=== PATIENT | male | born 1940 | race Caucasian/White ===

== ENCOUNTER 2018-03-30 18:04 | Observation (INO) ==
--- NOTE | 2018-03-30 18:20 | ED ---
HPI General Chief Complaint: Altered Mental Status Stated Complaint: Stroke Alert Time Seen by Provider: 03/30/18 18:12 Source: patient and EMS Mode of arrival: EMS Limitations: no limitations History of Present Illness HPI narrative: 77-year-old male was brought via EMS for altered mental status. 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 Patient was seen at home by his son this afternoon. The son reported to EMS that patient started having decreasing mental status and become unresponsive completely at home. EMS was called. Patient was observed by EMS unresponsive with GCS of 3 at home. Sternal rub did not elicit any respond from the patient. Accu-Chek blood sugar was on the high range. Patient was given oxygen via nonrebreathing mask and transported to ED for evaluation. Patient started regaining consciousness on the way to the ED. Patient awake alert . Patient denies any headache. Patient denies any visual change. Patient denies any neck pain. Patient denies any chest pain or shortness of breath. Patient denies abdominal pain. Patient denies any focal weakness or numbness of the extremity. Patient's son came and provided more information. Patient started having complaint of constipation and went to the bathroom this afternoon. Patient states that he is feeling nauseous tired and feeling sick to the stomach. Patient started becoming aphasic and having jerking motion of the extremity and then passed out completely. EMS was called. Patient has multiple episodes similar to this episode and was seen and admitted to the hospital in [place] in the past. 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 complaint: altered mental status Onset (ago): minute(s) Timing confirmed by: family member Severity: severe Consistency of symptoms: constant Associated symptoms: denies other symptoms Treatments prior to arrival: IV fluid and oxygen Related Data Home Medications Medication Instructions Recorded Confirmed Multi Vitamin 1 tab PO DAILY 03/31/18 03/31/18 amlodipine 5 mg PO DAILY 03/31/18 03/31/18 aspirin 325 mg PO DAILY 03/31/18 03/31/18 atorvastatin 10 mg PO DAILY 03/31/18 03/31/18 clonidine HCl 0.1 mg PO DAILY 03/31/18 03/31/18 docusate sodium 100 mg PO DAILY 03/31/18 03/31/18 ergocalciferol (vitamin D2) 50,000 unit PO QWEEK 03/31/18 03/31/18 insulin detemir U-100 [Levemir 30 unit SUB-Q QPM 03/31/18 03/31/18 FlexTouch U-100 Insuln] tamsulosin 0.8 mg PO DAILY 03/31/18 03/31/18 thiamine HCl (vitamin B1) 100 mg PO DAILY 03/31/18 03/31/18 valsartan 320 mg PO DAILY 03/31/18 03/31/18 Allergies Allergy/AdvReac Type Severity Reaction Status Date / Time No Known Allergies Allergy Mild Uncoded 08/22/08 09:58 Review of Systems Except as stated in HPI: all other systems reviewed are negative PMFSH History History Provided By: Patient and Export Sales Manager / EMT Medical History Medical History CVA (cerebral vascular accident) (Acute) Social History Social History Substance History: Past History Second Hand Smoke Exposure: No Smoking Status: Never smoker How Often Do You Have a Drink Containing Alcohol: Never Recent Travel in [facility] within the Last 8 Weeks: No Recent Out of Country Travel within the Last 8 Weeks: No Exam Narrative Exam Narrative: GENERAL: Well-nourished, well-developed patient. SKIN: Focused skin assessment warm/dry. HEAD: Normocephalic. EYES: No scleral icterus. No injection or drainage. Pupils 1.5 mm equal reactive. NECK: Supple, trachea midline. No JVD or lymphadenopathy. CARDIOVASCULAR: Regular rate and rhythm without murmurs, gallops, or rubs. RESPIRATORY: Breath sounds equal bilaterally. No accessory muscle use. GASTROINTESTINAL: Abdomen soft, non-tender, nondistended. MUSCULOSKELETAL: No cyanosis, or edema. BACK: Nontender without obvious deformity. No CVA tenderness. Neurologic exam: Patient is awake and alert oriented 3. Patient can move all extremities well. No obvious focal neurological deficit. Course Initial Documented Vital Signs Temperature 97.6 F 03/30/18 18:07 Pulse Rate 100 H 03/30/18 18:07 Respiratory Rate 17 03/30/18 18:07 Blood Pressure 180/85 H 03/30/18 18:07 Pulse Oximetry 99 03/30/18 18:07 Last Documented Vital Signs Temperature 97.5 F L 03/31/18 08:54 Pulse Rate 79 03/31/18 08:54 Respiratory Rate 20 03/31/18 08:54 Blood Pressure 172/80 H 03/31/18 09:25 Pulse Oximetry 98 03/31/18 08:55 Sign Out Sign Out Data: Patient Sign Out occurred on 03/30/18 at 20:05. Patient's care was discussed, and care was transferred from Adam Mosquera to Mona Campos MD. Sign Out Comment: Check blood tests and CT scan. Patient probably need to be admitted for workup for altered mental status and possible seizure. Last updated by Adam Mosquera MD at 03/30/18 19:20 Post-Handoff Eval: Received sign out from Dr. Mosquera for check workup results and admit. Patient resting comfortably in stretcher with family at bedside. [id number], head CT- CONCLUSION:1. No acute findings. Cortical volume loss with mild ventricular prominence and likely chronic white matter ischemic changes. CXR- CONCLUSION: No acute findings. Elevated right hemidiaphragm. Mild basilar atelectasis. chem-TSH and glucose increased ua-+ bacteria, cx pending bd cx-pending ECG: SR, PVCs, LVH, incomplete RBBB Patient given cipro 400mg IV 10:25 admission called NIH Stroke Scale NIH Stroke Scale Level of Consciousness: 0-Alert Orientation Questions: 0-Answers both correct Responds to Commands: 0-Both tasks correct Gaze Eye Movement: 0-Horizontal movement WNL Visual Boyd: 0-No visual field defect Facial Movement: 0-Normal Motor Functions Arm LEFT: 0-No drift Motor Functions Arm RIGHT: 0-No drift Motor Functions Leg LEFT: 0-No drift Motor Functions Leg RIGHT: 0-No drift Limb Ataxia: 0-No ataxia Sensory Loss: 0-No sensory loss Best Language: 0-Normal Articulation: 0-Normal Extinction or Inattention Sensory: 0-Absent Total: 0 Medical Decision Making MDM Narrative Medical decision making narrative: 77-year-old male with transient loss of consciousness. Patient is back to baseline now. Normal saline solution 100 cc an hour. O2 2 L nasal cannula. Head of bed flat. Differential Diagnosis Differential Diagnosis: Differential diagnosis including TIA, CVA, vasovagal reaction, electrolyte imbalance, dehydration, arrhythmia, seizure. Lab Data Result diagrams: 03/30/18 18:15 07/07/18 18:15 Lab Results 03/30/18 03/30/18 03/30/18 Range/Units 18:15 18:15 18:15 WBC 4.7 (4.0-11.0) th/mm3 RBC 4.22 L (4.50-5.90) mil/mm3 Hgb 13.5 (13.0-17.0) gm/dL Hct 39.7 (39.0-51.0) % MCV 94.1 (80.0-100.0) fL MCH 32.0 (27.0-34.0) pg MCHC 34.0 (32.0-36.0) % RDW 14.6 (11.6-17.2) % Plt Count 231 (150-450) th/mm3 MPV 8.7 (7.0-11.0) fL Neut % (Auto) 38.7 (16.0-70.0) % Lymph % (Auto) 42.3 (9.0-44.0) % [place] % (Auto) 10.3 H (0.0-8.0) % Eos % (Auto) 7.7 H (0.0-4.0) % Baso % (Auto) 1.0 (0.0-2.0) % Neut # (Auto) 1.8 (1.8-7.7) th/mm3 Lymph # (Auto) 2.0 (1.0-4.8) th/mm3 [place] # (Auto) 0.5 (0.0-0.9) th/mm3 Eos # (Auto) 0.4 (0.0-0.4) th/mm3 Baso # (Auto) 0.0 (0.0-0.2) th/mm3 WBC Differential . Differential Comment Auto diff final PT 10.8 (9.8-11.6) sec INR 1.1 Ratio APTT 24.6 (24.3-30.1) sec Sodium 132 L (136-145) meq/L Potassium 3.7 (3.5-5.1) meq/L Chloride 95 L (98-107) meq/L Carbon Dioxide 25.8 (21.0-32.0) meq/L Anion Gap 11 (5-15) meq/L BUN 18 (7-18) mg/dL Creatinine 0.82 (0.60-1.30) mg/dL Estimated GFR Greater than 89 (>89) mL/min POC Glucose (68-110) mg/dl Random Glucose 207 H (74-106) mg/dL Lactic Acid (0.4-2.0) mmol/L Calcium 9.1 (8.5-10.1) mg/dL Total Bilirubin 0.4 (0.2-1.0) mg/dL AST 15 (15-37) U/L ALT 23 (12-78) U/L Alkaline Phosphatase 31 L (45-117) U/L Total Creatine Kinase 53 (39-308) U/L Troponin I Less than 0.02 L (0.02-0.05) ng/mL Total Protein 6.2 L (6.4-8.2) g/dL Albumin 3.5 (3.4-5.0) g/dL TSH 6.750 H (0.358-3.740) uIU/mL Free T4 (0.76-1.46) ng/dL Urine Color (Yellw/Straw) Urine Clarity (Clear) Urine pH (5.0-8.5) Ur Specific [place] (1.002-1.035) Urine Protein (Neg-Trace) mg/dL Urine Glucose (UA) (Negative) mg/dL Urine Ketones (Negative) mg/dL Urine Occult Blood (Negative) Urine Nitrate (Negative) Urine Bilirubin (Negative) Urine Urobilinogen (Less than 2) mg/dL Ur Leukocyte Esterase (Negative) Urine RBC (0-3) /hpf Urine WBC (0-5) /hpf Amorphous Sediment (None) /hpf Urine Bacteria (None) /hpf Hyaline Casts (0-3) /lpf Micro UA Comment Urine Culture Comments 03/30/18 03/30/18 03/30/18 Range/Units 18:15 18:37 21:19 WBC (4.0-11.0) th/mm3 RBC (4.50-5.90) mil/mm3 Hgb (13.0-17.0) gm/dL Hct (39.0-51.0) % MCV (80.0-100.0) fL MCH (27.0-34.0) pg MCHC (32.0-36.0) % RDW (11.6-17.2) % Plt Count (150-450) th/mm3 MPV (7.0-11.0) fL Neut % (Auto) (16.0-70.0) % Lymph % (Auto) (9.0-44.0) % [place] % (Auto) (0.0-8.0) % Eos % (Auto) (0.0-4.0) % Baso % (Auto) (0.0-2.0) % Neut # (Auto) (1.8-7.7) th/mm3 Lymph # (Auto) (1.0-4.8) th/mm3 [place] # (Auto) (0.0-0.9) th/mm3 Eos # (Auto) (0.0-0.4) th/mm3 Baso # (Auto) (0.0-0.2) th/mm3 WBC Differential Differential Comment PT (9.8-11.6) sec INR Ratio APTT (24.3-30.1) sec Sodium (136-145) meq/L Potassium (3.5-5.1) meq/L Chloride (98-107) meq/L Carbon Dioxide (21.0-32.0) meq/L Anion Gap (5-15) meq/L BUN (7-18) mg/dL Creatinine (0.60-1.30) mg/dL Estimated GFR (>89) mL/min POC Glucose (68-110) mg/dl Random Glucose (74-106) mg/dL Lactic Acid 1.5 (0.4-2.0) mmol/L Calcium (8.5-10.1) mg/dL Total Bilirubin (0.2-1.0) mg/dL AST (15-37) U/L ALT (12-78) U/L Alkaline Phosphatase (45-117) U/L Total Creatine Kinase (39-308) U/L Troponin I (0.02-0.05) ng/mL Total Protein (6.4-8.2) g/dL Albumin (3.4-5.0) g/dL TSH (0.358-3.740) uIU/mL Free T4 1.03 (0.76-1.46) ng/dL Urine Color Yellow (Yellw/Straw) Urine Clarity Hazy H (Clear) Urine pH 7.0 (5.0-8.5) Ur Specific [place] 1.010 (1.002-1.035) Urine Protein Negative (Neg-Trace) mg/dL Urine Glucose (UA) 50 (Negative) mg/dL Urine Ketones 20 (Negative) mg/dL Urine Occult Blood Negative (Negative) Urine Nitrate Negative (Negative) Urine Bilirubin Negative (Negative) Urine Urobilinogen 2.0 H (Less than 2) mg/dL Ur Leukocyte Esterase Negative (Negative) Urine RBC 1 (0-3) /hpf Urine WBC 2 (0-5) /hpf Amorphous Sediment Rare H (None) /hpf Urine Bacteria Rare H (None) /hpf Hyaline Casts 1 (0-3) /lpf Micro UA Comment Cath-culture ind Urine Culture Comments Cath-cult indicated 03/31/18 03/31/18 03/31/18 Range/Units 01:15 03:32 05:15 WBC (4.0-11.0) th/mm3 RBC (4.50-5.90) mil/mm3 Hgb (13.0-17.0) gm/dL Hct (39.0-51.0) % MCV (80.0-100.0) fL MCH (27.0-34.0) pg MCHC (32.0-36.0) % RDW (11.6-17.2) % Plt Count (150-450) th/mm3 MPV (7.0-11.0) fL Neut % (Auto) (16.0-70.0) % Lymph % (Auto) (9.0-44.0) % [place] % (Auto) (0.0-8.0) % Eos % (Auto) (0.0-4.0) % Baso % (Auto) (0.0-2.0) % Neut # (Auto) (1.8-7.7) th/mm3 Lymph # (Auto) (1.0-4.8) th/mm3 [place] # (Auto) (0.0-0.9) th/mm3 Eos # (Auto) (0.0-0.4) th/mm3 Baso # (Auto) (0.0-0.2) th/mm3 WBC Differential Differential Comment PT (9.8-11.6) sec INR Ratio APTT (24.3-30.1) sec Sodium (136-145) meq/L Potassium (3.5-5.1) meq/L Chloride (98-107) meq/L Carbon Dioxide (21.0-32.0) meq/L Anion Gap (5-15) meq/L BUN (7-18) mg/dL Creatinine (0.60-1.30) mg/dL Estimated GFR (>89) mL/min POC Glucose 216 H (68-110) mg/dl Random Glucose (74-106) mg/dL Lactic Acid (0.4-2.0) mmol/L Calcium (8.5-10.1) mg/dL Total Bilirubin (0.2-1.0) mg/dL AST (15-37) U/L ALT (12-78) U/L Alkaline Phosphatase (45-117) U/L Total Creatine Kinase 53 47 (39-308) U/L Troponin I Less than 0.02 L Less than 0.02 L (0.02-0.05) ng/mL Total Protein (6.4-8.2) g/dL Albumin (3.4-5.0) g/dL TSH (0.358-3.740) uIU/mL Free T4 (0.76-1.46) ng/dL Urine Color (Yellw/Straw) Urine Clarity (Clear) Urine pH (5.0-8.5) Ur Specific [place] (1.002-1.035) Urine Protein (Neg-Trace) mg/dL Urine Glucose (UA) (Negative) mg/dL Urine Ketones (Negative) mg/dL Urine Occult Blood (Negative) Urine Nitrate (Negative) Urine Bilirubin (Negative) Urine Urobilinogen (Less than 2) mg/dL Ur Leukocyte Esterase (Negative) Urine RBC (0-3) /hpf Urine WBC (0-5) /hpf Amorphous Sediment (None) /hpf Urine Bacteria (None) /hpf Hyaline Casts (0-3) /lpf Micro UA Comment Urine Culture Comments 03/31/18 Range/Units 09:18 WBC (4.0-11.0) th/mm3 RBC (4.50-5.90) mil/mm3 Hgb (13.0-17.0) gm/dL Hct (39.0-51.0) % MCV (80.0-100.0) fL MCH (27.0-34.0) pg MCHC (32.0-36.0) % RDW (11.6-17.2) % Plt Count (150-450) th/mm3 MPV (7.0-11.0) fL Neut % (Auto) (16.0-70.0) % Lymph % (Auto) (9.0-44.0) % [place] % (Auto) (0.0-8.0) % Eos % (Auto) (0.0-4.0) % Baso % (Auto) (0.0-2.0) % Neut # (Auto) (1.8-7.7) th/mm3 Lymph # (Auto) (1.0-4.8) th/mm3 [place] # (Auto) (0.0-0.9) th/mm3 Eos # (Auto) (0.0-0.4) th/mm3 Baso # (Auto) (0.0-0.2) th/mm3 WBC Differential Differential Comment PT (9.8-11.6) sec INR Ratio APTT (24.3-30.1) sec Sodium (136-145) meq/L Potassium (3.5-5.1) meq/L Chloride (98-107) meq/L Carbon Dioxide (21.0-32.0) meq/L Anion Gap (5-15) meq/L BUN (7-18) mg/dL Creatinine (0.60-1.30) mg/dL Estimated GFR (>89) mL/min POC Glucose 244 H (68-110) mg/dl Random Glucose (74-106) mg/dL Lactic Acid (0.4-2.0) mmol/L Calcium (8.5-10.1) mg/dL Total Bilirubin (0.2-1.0) mg/dL AST (15-37) U/L ALT (12-78) U/L Alkaline Phosphatase (45-117) U/L Total Creatine Kinase (39-308) U/L Troponin I (0.02-0.05) ng/mL Total Protein (6.4-8.2) g/dL Albumin (3.4-5.0) g/dL TSH (0.358-3.740) uIU/mL Free T4 (0.76-1.46) ng/dL Urine Color (Yellw/Straw) Urine Clarity (Clear) Urine pH (5.0-8.5) Ur Specific [place] (1.002-1.035) Urine Protein (Neg-Trace) mg/dL Urine Glucose (UA) (Negative) mg/dL Urine Ketones (Negative) mg/dL Urine Occult Blood (Negative) Urine Nitrate (Negative) Urine Bilirubin (Negative) Urine Urobilinogen (Less than 2) mg/dL Ur Leukocyte Esterase (Negative) Urine RBC (0-3) /hpf Urine WBC (0-5) /hpf Amorphous Sediment (None) /hpf Urine Bacteria (None) /hpf Hyaline Casts (0-3) /lpf Micro UA Comment Urine Culture Comments Imaging Data Radiologist's impression: ITS Impressions Chest X-Ray 03/30/18 18:12 CONCLUSION: No acute findings. Elevated right hemidiaphragm. Mild basilar atelectasis. Head CT 03/30/18 18:12 CONCLUSION: 1. No acute findings. Cortical volume loss with mild ventricular prominence and likely chronic white matter ischemic changes. Carotid Doppler Study 03/31/18 00:00 CONCLUSION: No hemodynamically significant stenosis in either carotid artery Discharge Plan Discharge Disposition Patient Disposition: 30 Still Patient Discharge Condition Condition: Stable Discharge Details Discharge Problem: Altered mental status, Urinary tract infection Physicians Team ED Provider: Mona Campos Primary Care Provider: Tessie Madera Attending Provider: Anisha Mccabe Other Providers: Yinka Mahoney Jorge Status ED Status: Left Department Discharge Information Discharge Date/Time: 03/31/18 01:43
[2018-03-30 18:29] LABS: Eos # (Auto) 0.4 th/mm3 (0.0-0.4); Eos % (Auto) 7.7 % (0.0-4.0); Hematocrit 39.7 % (39.0-51.0); Hemoglobin 13.5 gm/dL (13.0-17.0); Lymph % (Auto) 42.3 % (9.0-44.0); Mean Corpuscular Volume 94.1 fL (80.0-100.0); Mean Platelet Volume 8.7 fL (7.0-11.0); Mono # (Auto) 0.5 th/mm3 (0.0-0.9); Mono % (Auto) 10.3 % (0.0-8.0); Neut # (Auto) 1.8 th/mm3 (1.8-7.7); Neut % (Auto) 38.7 % (16.0-70.0); Platelet Count 231 th/mm3 (150-450); Red Blood Count 4.22 mil/mm3 (4.50-5.90); Red Cell Distribution Width 14.6 % (11.6-17.2); White Blood Count 4.7 th/mm3 (4.0-11.0)
--- NOTE | 2018-03-30 18:34 | CT ---
EXAM DATE: 03/30/2018 6:28 PM EDT AGE/SEX: 77 years / Male INDICATIONS: Altered mental status. CLINICAL DATA: This is the patient's initial encounter. Patient reports that signs and symptoms have been present for 1 day and indicates a pain score of Nonresponsive. MEDICAL/SURGICAL HISTORY: Stroke. Non-responsive. RADIATION DOSE: 66.34 CTDI (mGy) COMPARISON: No prior exams available for comparison. TECHNIQUE: CT of the head without contrast. Using automated exposure control and adjustment of the mA and/or kV according to patient size, radiation dose was kept as low as reasonably achievable to ob tain optimal diagnostic quality images. DICOM format image data is available electronically for revi ew and comparison. FINDINGS: Cerebrum: There is some cortical volume loss and mild ventricular prominence with likely chronic isc hemic changes in the white matter. No recent infarct identified. Posterior Fossa: The cerebellum and brainstem are intact. The 4th ventricle is midline. The cerebe llopontine angle is unremarkable. Extracranial: The visualized portion of the orbits is intact. Skull: The calvaria is intact. No evidence of skull fracture. CONCLUSION: 1. No acute findings. Cortical volume loss with mild ventricular prominence and likely chronic white matter ischemic changes. Electronically signed by: Yordy Fung MD 03/30/2018 6:32 PM EDT
[2018-03-30 18:46] LABS: Activated Partial Thrombo Time 24.6 sec (24.3-30.1); INR 1.1 Ratio; Prothrombin Time 10.8 sec (9.8-11.6)
[2018-03-30] MEDS: Sod Chloride 0.9% Inj 1,000 ML IV.CONT SCH (18:46)
[2018-03-30 19:04] LABS: Albumin 3.5 g/dL (3.4-5.0); Anion Gap 11 meq/L (5-15); Aspartate Aminotransferase 15 U/L (15-37); Blood Urea Nitrogen 18 mg/dL (7-18); Calcium 9.1 mg/dL (8.5-10.1); Carbon Dioxide 25.8 meq/L (21.0-32.0); Chloride 95 meq/L (98-107); Glomerular Filtration Rate Greater Than 89 mL/min (>89); Glucose,Random 207 mg/dL (74-106); Potassium 3.7 meq/L (3.5-5.1); Sodium 132 meq/L (136-145)
[2018-03-30 19:05] LABS: Alanine Aminotransferase 23 U/L (12-78)
[2018-03-30 19:15] LABS: Alkaline Phosphatase 31 U/L (45-117); Total Protein 6.2 g/dL (6.4-8.2)
[2018-03-30 19:18] LABS: Creatine Kinase 53 U/L (39-308)
--- NOTE | 2018-03-30 19:18 | XR ---
EXAM DATE: 03/30/2018 6:51 PM EDT AGE/SEX: 77 years / Male INDICATIONS: Stroke Alert. Short of breath. CLINICAL DATA: This is the patient's initial encounter. Patient reports that signs and symptoms have been present for 1 day and indicates a pain score of Nonresponsive. MEDICAL/SURGICAL HISTORY: Non-responsive. Non-responsive. COMPARISON: No prior exams available for comparison. FINDINGS: Elevated right hemidiaphragm. Mild basilar atelectasis. No effusion. No pneumothorax. Heart size with in normal limits. CONCLUSION: No acute findings. Elevated right hemidiaphragm. Mild basilar atelectasis. Electronically signed by: Yordy Fung MD 03/30/2018 7:17 PM EDT
[2018-03-30 21:58] LABS: Amorphous Sediment,Urine Rare /hpf; Bacteria,Urine Rare /hpf; Bilirubin,Urine Negative (Negative); Clarity,Urine Hazy (Clear); Color,Urine Yellow (Yellw/Straw); Glucose,Urine (UA) 50 mg/dL (Negative); Hyaline Casts,Urine 1 /lpf (0-3); Leukocyte Esterase,Urine Negative (Negative); Nitrite,Urine Negative (Negative)
[2018-03-30] MEDS ORDERED: Ciprofloxacin 400 MG/200 ML 400 MG/200 ML PIGGYBACK IV.SIG ONE (22:24)
--- NOTE | 2018-03-30 23:07 | ECG ---
Date Performed: 03/30/2018 Time Performed: 18:39:59 PTAGE: 77 years EKG: Sinus rhythm WITH OCCASIONAL SUPRAVENTRICULAR PREMATURE COMPLEXES NONSPECIFIC INTRAVENTRICULAR CONDUCTION DELAY L EFT ANTERIOR FASCICULAR BLOCK MINIMAL VOLTAGE CRITERIA FOR LVH, CONSIDER NORMAL VARIANT NONSPECIFIC T -WAVE ABNORMALITY ABNORMAL ECG PREVIOUS TRACING : 08/22/2008 11.58 Compared to previous tracing, QRS duration has increased sl ightly, minimal voltage criteria for LVH is now present. DOCTOR: Lux Rojas Interpretating Date/Time 03/30/2018 23:07:20
[2018-03-31] MEDS: Sod Chloride 0.9% Inj 1,000 ML IV.CONT SCH ×5 (00:09→16:28)
[2018-03-31] MEDS ORDERED: Dextrose 50% in Water 50 ML Vial IV.PUSH PRN (00:14)
[2018-03-31] MEDS: Heparin - SQ 10,000 UNITS/ML Vial SQ SCH ×3 (01:04→16:09)
[2018-03-31 02:07] LABS: Creatine Kinase 53 U/L (39-308)
[2018-03-31] MEDS ORDERED: Melatonin 5 MG Tablet PO ONE (03:46)
[2018-03-31 06:21] LABS: Creatine Kinase 47 U/L (39-308)
--- NOTE | 2018-03-31 08:05 | US ---
EXAM DATE: 03/31/2018 8:01 AM EDT AGE/SEX: 77 years / Male INDICATIONS: Transient ischemic attack. CLINICAL DATA: This is the patient's initial encounter. Patient reports that signs and symptoms have been present for 1 day and indicates a pain score of 0/10. MEDICAL/SURGICAL HISTORY: Stroke. Hypertension. Alcohol abuse. Diabetes. TIA. None. COMPARISON: No prior exams available for comparison. VELOCITY PARAMETERS: ICA/CCA Ratio: Right 1.1 , Left 0.7 ICA: Right 68.8 cm/sec, Left 61.4 cm/sec CCA: Right 63.3 cm/sec, Left 87.6 cm/sec ECA: Right 54.5 cm/sec, Left 79.4 cm/sec Vertebral: Right 33.2 cm/sec antegrade, Left 35.5 cm/sec antegrade FINDINGS: Right Carotid: No significant plaque is visualized.The waveforms are within normal limits. Left Carotid: No significant plaque is visualized. The waveforms are within normal limits. Other: None. CONCLUSION: No hemodynamically significant stenosis in either carotid artery Electronically signed by: Uli Mcknight MD 03/31/2018 8:03 AM EDT
[2018-03-31] MEDS ORDERED: Aspirin 325 MG Tablet PO SCH (09:00)
[2018-03-31] MEDS: Insulin NovoLOG Aspart Correctional Sugar Inj SQ SCH ×4 (09:39→22:16)
--- NOTE | 2018-03-31 10:52 | MR ---
EXAM DATE: 03/31/2018 10:43 AM EDT AGE/SEX: 77 years / Male INDICATIONS: Altered mental status. CLINICAL DATA: This is the patient's initial encounter. Patient reports that signs and symptoms have been present for 1 day and indicates a pain score of 0/10. MEDICAL/SURGICAL HISTORY: Cerebrovascular disease. Hypertension. Diabetes mellitus type II. N one. [place] [facility] [place]. . TECHNIQUE: 3D [id number] MRA was performed. Source images, multiplanar STS MIP, and 3D volum e MIP reconstructions were reviewed. FINDINGS: There is some motion artifact. There is excellent visualization of the major intracranial arteries out to the second-order branch ve ssels. There is no evidence for aneurysm, vessel truncation or stenosis, and no evidence for vascula r malformation. Anterior communicating artery. Vertebrobasilar junction normal Basilar artery is unremarkable. There is focal short segment mild to moderate narrowing within the le ft proximal posterior cerebral artery and likely artifactual. Similar changes are seen within the cer ebral arteries distal branches bilaterally. CONCLUSION: 1. Questionable focal narrowing in the left proximal cerebral artery likely artifactual. 2. No large vessel stenosis or aneurysm. Electronically signed by: Uli Mcknight MD 03/31/2018 10:51 AM EDT
--- NOTE | 2018-03-31 10:57 | MR ---
EXAM DATE: 03/31/2018 10:48 AM EDT AGE/SEX: 77 years / Male INDICATIONS: Altered mental status. CLINICAL DATA: This is the patient's initial encounter. Patient reports that signs and symptoms have been present for 1 day and indicates a pain score of 0/10. MEDICAL/SURGICAL HISTORY: Cerebrovascular disease. Diabetes mellitus type II. Hypertension. N one. [place] [facility] [place]. . TECHNIQUE: Multiplanar, multisequence examination of the brain was performed without contrast. FINDINGS: Cerebrum: The ventricles are prominent consistent with atrophy. No evidence of midline shift, mass lesion, hemorrhage or acute infarction. No extraaxial fluid collections are seen. The pituitary gla nd and suprasellar cistern are normal in configuration. There is multifocal areas of susceptibility a rtifact throughout the brain. White Matter: Areas of high focal FLAIR signal abnormality seen throughout the white matter Posterior Fossa: The cerebellum is intact. Nonspecific white matter changes in the brainstem. The 4th ventricle is midline. The cerebellopontine angle is unremarkable. The cerebellar tonsils are lorenzo l in position. Diffusion Imaging: No focal areas of restricted diffusion are seen. No evidence of acute infarction . Extracranial: The visualized portions of the orbits and paranasal sinuses are unremarkable. CONCLUSION: 1. Cerebral atrophy and chronic ischemic small vessel vasculopathy. 2. Multifocal punctate areas of high susceptibility artifact suggesting petechial hemorrhages which can be seen with hypertensive encephalopathy, trauma and amyloid. Electronically signed by: Uli Mcknight MD 03/31/2018 10:56 AM EDT
--- NOTE | 2018-03-31 11:16 | ECG ---
Date Performed: 03/31/2018 Time Performed: 01:25:38 PTAGE: 77 years EKG: Sinus rhythm LEFTANTERIOR FASCICULAR BLOCK POSSIBLE INCOMPLETE RIGHT BUNDLE BRANCH BLOCK VOLTAGE CRITERIA FOR LVH , CONSIDER NORMAL VARIANT ABNORMAL ECG PREVIOUS TRACING : 03/30/2018 18.39 No significant change from previous tracing noted. DOCTOR: Lux Rojas Interpretating Date/Time 04/02/2018 06:47:18
--- NOTE | 2018-03-31 13:17 | MB ---
cc: Yinka Mahoney MD, PhD DATE: 03/31/2018 REASON FOR CONSULTATION: Possible TIA. HISTORY OF PRESENT ILLNESS: Mr. Manley is a very pleasant 77-year-old man who states he passed out. The son reported to the ER that the patient began having decreased mental status, became unresponsive. He called EMS. When EMS arrived, he was unresponsive with a GCS of 3. Sternal rub did not elicit any response. His blood sugar was on the high range, certainly not low. He started regaining consciousness on the way to the ER. He denied any slurred speech, focal weakness or numbness. He does have a history of strokes in the past. PAST MEDICAL HISTORY: History of TIA in the past, history of alcoholic dementia, hypertension, diabetes. CURRENT MEDICATIONS: 1. Aspirin 325 mg daily. 2. Insulin p.r.n. NEUROLOGICAL EXAMINATION: VITAL SIGNS: His blood pressure is 172/80, pulse is 70, respiratory rate is 20, temperature 97 degrees. NEUROLOGIC: Higher cortical function: At this time, he is alert and oriented. Speech is normal. Follows commands. Cranial nerves are intact. Motor exam is 5/5 strength in all groups. There is no drift. Reflexes are symmetric. Cerebellar testing is within normal limits with no sign of dysmetria, no dysdiadochokinesia. Sensory exam is intact. IMAGING STUDIES: MRI of the brain shows atrophy, chronic ischemic changes with multifocal punctate areas of increased susceptibility artifact consistent with small petechial hemorrhages, suggestive of possible hypertensive encephalopathy or amyloid angiopathy. No evidence of any acute infarction is identified. MRA of the brain: Focal narrowing of the left proximal cerebral artery, likely artifact. No aneurysms identified. No AVM is seen. Carotid ultrasound: No significant stenosis is identified in the carotid arteries. LABORATORY DATA: The white count is 4700, hemoglobin 13.5, hematocrit 39%, platelet count 231,000. PT 10.8, INR 1.1, aPTT 24.6. Sodium is 132, potassium 3.7. The BUN is 18, creatinine is 0.82, GFR is greater than 89. Glucose 216. IMPRESSION: Episode of loss of consciousness. The MRI shows multiple small chronic appearing petechial hemorrhages. I suspect this may be an amyloid angiopathy, possibly from dementia. No evidence of acute stroke. Rule out seizure, rule out cardiogenic syncope. RECOMMENDATIONS: Recommend an EEG. Also, echocardiogram. Consider cardiology evaluation. Yinka Mahoney MD, PhD ARTIE/RAD , 11:39 AM , 01:16 PM
--- NOTE | 2018-03-31 14:03 | ECG ---
Date Performed: 03/31/2018 Time Performed: 06:44:05 PTAGE: 77 years EKG: Sinus rhythm WITH OCCASIONAL SUPRAVENTRICULAR PREMATURE COMPLEXES LEFT ANTERIOR FASCICULAR BLOCK ABNORMAL ECG PREVIOUS TRACING : 03/31/2018 01.25 No significant change from previous tracing noted. DOCTOR: Lux Rojas Interpretating Date/Time 03/31/2018 14:02:41
--- NOTE | 2018-03-31 14:42 | P.HP ---
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 Patient states he does not recall after passing out from recliner and he woke up almost already being wheeled inside the hospital by the ambulance. States he has multiple mini strokes before and also has diabetes. On exam, he denies diplopia, visual changes, unilateral weakness or any weakness at all. Denies pain and discomfort. Denies SOB/ dyspnea. Denies chest pain, palpitations, headaches, dizziness. Denies fevers, chills, n/v/d. Denies dysuria, abdominal pain, cramping. Tolerating p.o. diet. - Diagnosis (1) Syncopal episodes (2) Abnormal urinalysis (3) Altered mental status Inpatient Certification: I certify that the inpatient services were ordered in accordance with Medicare regulations governing the order. 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 Father Family history of diabetes mellitus - Tobacco History Second Hand Smoke Exposure: No Smoking Status: Never smoker - Alcohol History How Often Do You Have a Drink Containing Alcohol: Never - Substance Use History Substance History: Past History - Substance Use Type Alcohol Status: Sustained Remission Route Used: By Mouth Last Used: 5 MONTHS AGO Reason for Use: Feels Good Comment: SONS WILL NOT ALLOW ALCOHOL CONSUMPTION NOW - Travel History Recent Travel in the [place] Within the Last 8 Weeks: No Recent Travel Out of the Country Within the Last 8 Weeks: No - Immunization History Tetanus Immunization: Unsure Hx Influenza Vaccine This Season: No Medications and Allergies Active Medications: Active Medications Aspirin (Aspirin) 325 mg PO DAILY [facility] Last Admin: 03/31/18 09:15 Dose: 325 mg Dextrose (D50w Vial) 50 ml IV.PUSH UNSCH PRN PRN Reason: PER HYPOGLYCEMIA PROTOCOL Glucagon (Glucagon Inj) 1 mg OTHER UNSCH PRN PRN Reason: for Hypoglycemia Protocol Heparin Sodium (Porcine) (Heparin Inj) 5,000 units SQ Q8H [facility] Last Admin: 03/31/18 09:15 Dose: 5,000 units Sodium Chloride (Ns Inj) 1,000 mls @ 125 mls/hr IV.CONT .Q8H [facility] Last Infusion: 03/31/18 08:57 Dose: Infused Sodium Chloride (Ns Inj) 1,000 mls @ 70 mls/hr IV.CONT .[id number] [facility] Last Infusion: 03/31/18 08:57 Dose: Infused Insulin Aspart (Novolog Insulin Suppl Scale Inj) 0 unit SQ ACHS [facility]; Protocol Last Admin: 03/31/18 09:39 Dose: 3 unit Sodium Chloride (Ns Flush) 2 ml IV.FLUSH PRN PRN PRN Reason: FLUSH AFTER USING IV ACCESS Sodium Chloride (Ns Flush) 2 ml IV.FLUSH BID [facility] Last Admin: 03/31/18 09:15 Dose: 2 ml Sodium Chloride (Ns Flush) 2 ml IV.FLUSH PRN PRN PRN Reason: FLUSH AFTER USING IV ACCESS Allergies Allergy/AdvReac Type Severity Reaction Status Date / Time No Known Allergies Allergy Mild Uncoded 08/22/08 09:58 Home Medications Medication Instructions Recorded Confirmed Type Multi Vitamin 1 tab PO DAILY 03/31/18 03/31/18 History amlodipine 5 mg PO DAILY 03/31/18 03/31/18 History aspirin 325 mg PO DAILY 03/31/18 03/31/18 History atorvastatin 10 mg PO DAILY 03/31/18 03/31/18 History clonidine HCl 0.1 mg PO DAILY 03/31/18 03/31/18 History docusate sodium 100 mg PO DAILY 03/31/18 03/31/18 History ergocalciferol (vitamin D2) 50,000 unit PO QWEEK 03/31/18 03/31/18 History insulin detemir U-100 [Levemir 30 unit SUB-Q QPM 03/31/18 03/31/18 History FlexTouch U-100 Insuln] tamsulosin 0.8 mg PO DAILY 03/31/18 03/31/18 History thiamine HCl (vitamin B1) 100 mg PO DAILY 03/31/18 03/31/18 History valsartan 320 mg PO DAILY 03/31/18 03/31/18 History Exam Vital signs: Vital Signs 03/30/18 18:07 03/30/18 18:30 03/30/18 19:36 Temperature 97.6 F Pulse Rate 100 H 82 89 Respiratory Rate 17 19 17 Blood Pressure 180/85 H 177/97 H 166/71 H Pulse Oximetry 99 99 99 03/30/18 23:56 03/31/18 01:23 03/31/18 02:33 Temperature 97.7 F Pulse Rate 82 82 79 Respiratory Rate 16 17 18 Blood Pressure 178/86 H 159/77 H 180/79 H Pulse Oximetry 100 98 98 03/31/18 02:57 03/31/18 03:34 03/31/18 04:15 Temperature 98.0 F Pulse Rate 76 74 Respiratory Rate 18 Blood Pressure 182/96 H Pulse Oximetry 98 98 03/31/18 08:00 03/31/18 08:54 03/31/18 08:55 Temperature 97.5 F L Pulse Rate 76 79 Respiratory Rate 20 Blood Pressure 182/93 H Pulse Oximetry 98 98 03/31/18 09:25 03/31/18 11:49 Temperature Pulse Rate 76 Respiratory Rate Blood Pressure 172/80 H Pulse Oximetry Intake & Output 03/30/18 03/31/18 03/31/18 18:59 06:59 18:59 Intake Total 1999 2200 / 2200 Output Total 350 / 350 200 / 200 Balance 1650 / 1650 1999 Weight 86.5 [place]: [place] 19990 / 2200 NS Inj 1,000 ML @ 70 mls/hr IV. 1999 CONT .[id number] [facility] Rx#:[id number] Cipro 400 MG/200 ML Inj 400 mg 200 / 200 In 200 ml @ 200 mls/hr IV.SIG ONCE ONE Rx#:[id number] Output: Urine 350 / 350 200 / 200 Other: # Voids 1 # Incontinent Voids 0 # Urine Diapers 0 Date of Last Bowel Movement 03/31/18 # Bowel Movements 1 Narrative: GENERAL: This is a well-nourished, well-developed patient, in no apparent distress. SKIN: Warm and dry. HEENT: Normocephalic. Pupils equal round and reactive. Nose without bleeding. Airway patent. NECK: Trachea midline. No JVD. Supple. CARDIOVASCULAR: Regular rate and rhythm without murmurs, gallops, or rubs. RESPIRATORY: Clear to auscultation. Breath sounds equal bilaterally. No wheezes , rales, or rhonchi. GASTROINTESTINAL: Abdomen soft, non-tender, nondistended. Bowel Sounds normoactive x4. MUSCULOSKELETAL: Extremities without clubbing, cyanosis, or edema. NEUROLOGICAL: Awake and alert. Oriented to place, person. Moves all extremities equally. Normal speech. Results - Labs CBC & Chem 7: 03/30/18 18:15 03/30/18 18:15 Labs: Laboratory Results - last 24 hr 03/30/18 03/30/18 03/30/18 18:15 18:15 18:15 WBC 4.7 RBC 4.22 L Hgb 13.5 Hct 39.7 MCV 94.1 MCH 32.0 MCHC 34.0 RDW 14.6 Plt Count 231 MPV 8.7 Neut % (Auto) 38.7 Lymph % (Auto) 42.3 [place] % (Auto) 10.3 H Eos % (Auto) 7.7 H Baso % (Auto) 1.0 Neut # (Auto) 1.8 Lymph # (Auto) 2.0 [place] # (Auto) 0.5 Eos # (Auto) 0.4 Baso # (Auto) 0.0 WBC Differential . Differential Comment Auto diff final PT 10.8 INR 1.1 APTT 24.6 Sodium 132 L Potassium 3.7 Chloride 95 L Carbon Dioxide 25.8 Anion Gap 11 BUN 18 Creatinine 0.82 Estimated GFR Greater than 89 POC Glucose Random Glucose 207 H Lactic Acid Calcium 9.1 Total Bilirubin 0.4 AST 15 ALT 23 Alkaline Phosphatase 31 L Total Creatine Kinase 53 Troponin I Less than 0.02 L Total Protein 6.2 L Albumin 3.5 TSH 6.750 H Free T4 Urine Color Urine Clarity Urine pH Ur Specific [place] Urine Protein Urine Glucose (UA) Urine Ketones Urine Occult Blood Urine Nitrate Urine Bilirubin Urine Urobilinogen Ur Leukocyte Esterase Urine RBC Urine WBC Amorphous Sediment Urine Bacteria Hyaline Casts Micro UA Comment Urine Culture Comments 03/30/18 03/30/18 03/30/18 18:15 18:37 21:19 WBC RBC Hgb Hct MCV MCH MCHC RDW Plt Count MPV Neut % (Auto) Lymph % (Auto) [place] % (Auto) Eos % (Auto) Baso % (Auto) Neut # (Auto) Lymph # (Auto) [place] # (Auto) Eos # (Auto) Baso # (Auto) WBC Differential Differential Comment PT INR APTT Sodium Potassium Chloride Carbon Dioxide Anion Gap BUN Creatinine Estimated GFR POC Glucose Random Glucose Lactic Acid 1.5 Calcium Total Bilirubin AST ALT Alkaline Phosphatase Total Creatine Kinase Troponin I Total Protein Albumin TSH Free T4 1.03 Urine Color Yellow Urine Clarity Hazy H Urine pH 7.0 Ur Specific [place] 1.010 Urine Protein Negative Urine Glucose (UA) 50 Urine Ketones 20 Urine Occult Blood Negative Urine Nitrate Negative Urine Bilirubin Negative Urine Urobilinogen 2.0 H Ur Leukocyte Esterase Negative Urine RBC 1 Urine WBC 2 Amorphous Sediment Rare H Urine Bacteria Rare H Hyaline Casts 1 Micro UA Comment Cath-culture ind Urine Culture Comments Cath-cult indicated 03/31/18 03/31/18 03/31/18 01:15 03:32 05:15 WBC RBC Hgb Hct MCV MCH MCHC RDW Plt Count MPV Neut % (Auto) Lymph % (Auto) [place] % (Auto) Eos % (Auto) Baso % (Auto) Neut # (Auto) Lymph # (Auto) [place] # (Auto) Eos # (Auto) Baso # (Auto) WBC Differential Differential Comment PT INR APTT Sodium Potassium Chloride Carbon Dioxide Anion Gap BUN Creatinine Estimated GFR POC Glucose 216 H Random Glucose Lactic Acid Calcium Total Bilirubin AST ALT Alkaline Phosphatase Total Creatine Kinase 53 47 Troponin I Less than 0.02 L Less than 0.02 L Total Protein Albumin TSH Free T4 Urine Color Urine Clarity Urine pH Ur Specific [place] Urine Protein Urine Glucose (UA) Urine Ketones Urine Occult Blood Urine Nitrate Urine Bilirubin Urine Urobilinogen Ur Leukocyte Esterase Urine RBC Urine WBC Amorphous Sediment Urine Bacteria Hyaline Casts Micro UA Comment Urine Culture Comments 03/31/18 09:18 WBC RBC Hgb Hct MCV MCH MCHC RDW Plt Count MPV Neut % (Auto) Lymph % (Auto) [place] % (Auto) Eos % (Auto) Baso % (Auto) Neut # (Auto) Lymph # (Auto) [place] # (Auto) Eos # (Auto) Baso # (Auto) WBC Differential Differential Comment PT INR APTT Sodium Potassium Chloride Carbon Dioxide Anion Gap BUN Creatinine Estimated GFR POC Glucose 244 H Random Glucose Lactic Acid Calcium Total Bilirubin AST ALT Alkaline Phosphatase Total Creatine Kinase Troponin I Total Protein Albumin TSH Free T4 Urine Color Urine Clarity Urine pH Ur Specific [place] Urine Protein Urine Glucose (UA) Urine Ketones Urine Occult Blood Urine Nitrate Urine Bilirubin Urine Urobilinogen Ur Leukocyte Esterase Urine RBC Urine WBC Amorphous Sediment Urine Bacteria Hyaline Casts Micro UA Comment Urine Culture Comments - Imaging Impressions Chest X-Ray 03/30/18 18:12 CONCLUSION: No acute findings. Elevated right hemidiaphragm. Mild basilar atelectasis. Head CT 03/30/18 18:12 CONCLUSION: 1. No acute findings. Cortical volume loss with mild ventricular prominence and likely chronic white matter ischemic changes. Carotid Doppler Study 03/31/18 00:00 CONCLUSION: No hemodynamically significant stenosis in either carotid artery Head MRI 03/31/18 00:16 CONCLUSION: 1. Cerebral atrophy and chronic ischemic small vessel vasculopathy. 2. Multifocal punctate areas of high susceptibility artifact suggesting petechial hemorrhages which can be seen with hypertensive encephalopathy, trauma and amyloid. Head MRA 03/31/18 00:16 CONCLUSION: 1. Questionable focal narrowing in the left proximal cerebral artery likely artifactual. 2. No large vessel stenosis or aneurysm. Caprini VTE Risk Assessment Caprini VTE Risk Assessment: Moderate/High Risk (score >= 2) Caprini Risk Assessment Model: Point Value = 1 Point Value = 2 Point Value = 3 Point Value = 5 Age 41-60 Minor surgery BMI > 25 kg/m2 Swollen legs Varicose veins or History of unexplained or recurrent spontaneous Oral contraceptives or hormone replacement Sepsis (< 1 month) Serious lung disease, including pneumonia (< 1 month) Abnormal pulmonary function Acute myocardial infarction Congestive heart failure (< 1 month) History of inflammatory bowel disease Medical patient at bed rest Age 61-74 Arthroscopic surgery Major open surgery (> 45 min) Laparoscopic surgery (> 45 min) Malignancy Confined to bed (> 72 hours) Immobilizing plaster cast Central venous access Age >= 75 History of VTE Family history of VTE Factor V Leiden Prothrombin [id number] Lupus anticoagulant Anticardiolipin antibodies Elevated serum homocysteine Heparin-induced thrombocytopenia Other congenital or acquired thrombophilia Stroke (< 1 month) Elective arthroplasty Hip, pelvis, or leg fracture Acute spinal cord injury (< 1 month) Prophylaxis Regimen: Total Risk Factor Score Risk Level Prophylaxis Regimen 0-1 Low Early ambulation 2 Moderate Order ONE of the following: *Sequential Compression Device (SCD) *Heparin 5000 units SQ BID 3-4 Higher Order ONE of the following medications: *Heparin 5000 units SQ TID *Enoxaparin/Lovenox 40 mg SQ daily (WT < 150 kg, CrCl > 30 mL/min) *Enoxaparin/Lovenox 30 mg SQ daily (WT < 150 kg, CrCl > 10-29 mL/min) *Enoxaparin/Lovenox 30 mg SQ BID (WT < 150 kg, CrCl > 30 mL/min) AND/OR *Sequential Compression Device (SCD) 5 or more Highest Order ONE of the following medications: *Heparin 5000 units SQ TID (Preferred with Epidurals) *Enoxaparin/Lovenox 40 mg SQ daily (WT < 150 kg, CrCl > 30 mL/min) *Enoxaparin/Lovenox 30 mg SQ daily (WT < 150 kg, CrCl > 10-29 mL/min) *Enoxaparin/Lovenox 30 mg SQ BID (WT < 150 kg, CrCl > 30 mL/min) AND *Sequential Compression Device (SCD) Assessment and Plan - Assessment (1) Syncopal episodes Code(s): R55 - Syncope and collapse Status: Acute (2) Abnormal urinalysis Code(s): R82.90 - Unspecified abnormal findings in urine Status: Acute (3) Altered mental status Code(s): R41.82 - Altered mental status, unspecified Status: Acute - Plan Patient is a 77-year-old male with primary medical history of diabetes, HTN, 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 Syncopal episode, versus TIA -CT of the head no acute intracranial abnormality -MRI/MRA normal MRI and MRA of [place] -Carotid ultrasound minimal plaque but no hemodynamically significant stenosis is identified. -Neurology consulted appreciate recommendations. -Check echo cardiogram, check serial EKGs, check for cardiac etiology, telemetry monitoring -Serial troponin negative, serial CK negative -Consult cardiology appreciate recommendations -Rehab medicine consulted appreciate recommendation -Check lipid profile. Start atorvastatin DM 2, uncontrolled -Check hemoglobin A1c -Insulin sliding scale. Monitor Accu-Cheks. -Start Levemir, lower dose 10 units subcu nightly HTN -Continue home medications -Monitor BP trend -ASA 325 mg DVT prop SCDs Code Status: Full code Discussed Condition With: Patient, nursing, Dr. Mccabe Discharge Planning: Plan to DC home when clinically improved. (3) Altered mental status Qualifiers: Altered mental status type: unspecified Qualified Code(s): R41.82 - Altered mental status, unspecified
[2018-03-31] MEDS: amLODIPine 5 MG Tablet PO SCH (16:08)
[2018-03-31] MEDS ORDERED: hydrALAZINE 10 MG Tablet PO PRN (17:45)
[2018-03-31] MEDS ORDERED: Insulin Detemir Inj 1,000 UNIT/10 ML Vial SQ SCH (18:00)
--- NOTE | 2018-03-31 21:10 | MG ---
cc: Yinka Mahoney MD, PhD DATE OF STUDY: 03/31. TEST NUMBER: [id number]. TECHNIQUE: A 17-channel EEG. DESCRIPTION: The background rhythm reveals symmetrical alpha rhythm, frequency 8 Hz. Amplitude is 20 microvolts. During drowsiness, there is slowing in the theta range. The patient appears to fall asleep. There are sleep spindles and further slowing in the delta frequency. There are no lateralizing features identified. No epileptiform discharges are seen. Mild muscle artifact is identified. Photic stimulation results in a fairly well-developed driving response. INTERPRETATION: Normal EEG. Yinka Mahoney MD, PhD ARTIE/ELAINE , 07:14 PM , 09:08 PM
[2018-04-01] MEDS: Heparin - SQ 10,000 UNITS/ML Vial SQ SCH ×3 (01:19→18:39)
[2018-04-01] MEDS: Sod Chloride 0.9% Inj 1,000 ML IV.CONT SCH ×2 (05:10→20:32)
[2018-04-01 07:42] LABS: Chol/HDL Ratio 2.21 Ratio; HDL Cholesterol 68.5 mg/dL (40.0-60.0)
--- NOTE | 2018-04-01 07:49 | MB ---
cc: Natasha Anand MD DATE: 03/31/2018 HISTORY OF PRESENT ILLNESS: Mr. Manley is a 77-year-old white male with a history of heavy alcohol use and dementia. Yesterday, he was sitting in the evening and planning to eat dinner. He suddenly became unresponsive. His eyes rolled back and he was unresponsive to voice and sternal rub. His blood sugar was high at the time. EMS was called and on the way to the ER, he regained consciousness. He has not had any chest pain, shortness of breath, dizziness, lightheadedness or peripheral edema. PAST MEDICAL HISTORY: Positive for TIA, history of alcoholic dementia. The patient also was diagnosed with vascular dementia, history of hypertension, diabetes mellitus. MEDICATIONS: Aspirin and insulin. ALLERGIES: NONE. SOCIAL HISTORY: The patient was drinking heavily in the past, quit drinking 6 months ago. He does not smoke. He is accompanied by his son and his . FAMILY HISTORY: Positive for diabetes mellitus and negative for coronary artery disease. REVIEW OF SYSTEMS: Otherwise negative. PHYSICAL EXAMINATION: VITAL SIGNS: Blood pressure 158/91, pulse 73 and regular. HEENT: Negative. NECK: 2+ carotid upstrokes. No bruits. LUNGS: Clear. HEART: Regular, with no murmur, gallop or rub. ABDOMEN: Soft, no bruits. EXTREMITIES: Without edema. 2+ distal pulses. NEUROLOGIC: Grossly nonfocal. STUDY: EKG was reviewed and showed normal sinus rhythm, left axis, left anterior fascicular block, LVH and intraventricular conduction delay. LABORATORY DATA: Hemoglobin 13.5, potassium 3.7, creatinine 0.8. AST and ALT normal. Troponin negative x 3. TSH 6.75. DIAGNOSES: 1. Syncope. 2. Alcoholic dementia. 3. Possible vascular dementia. 4. Hypertension. 5. Diabetes mellitus. 6. Possible history of transient ischemic attack. DISPOSITION: Mr. Manley will be monitored on telemetry. We will obtain echocardiogram to evaluate his left ventricular function. His recent carotid ultrasound was reportedly unremarkable. He is undergoing neurologic evaluation. I will follow him for cardiology during his hospitalization. The plan was discussed with the patient and his family. Natasha Anand MD OQ/ELAINE , 05:56 PM , 09:31 PM DEN
[2018-04-01] MEDS: Insulin NovoLOG Aspart Correctional Sugar Inj SQ SCH ×4 (08:39→22:07)
[2018-04-01] MEDS: Aspirin 325 MG Tablet PO SCH (08:48)
[2018-04-01] MEDS: amLODIPine 5 MG Tablet PO SCH (08:49)
--- NOTE | 2018-04-01 09:04 | P.PN ---
Subjective Interval history: Follow-up visit syncopal episode, alcoholic dementia, vascular dementia, HTN, TIAs. Patient seen and examined today. Reports he is doing okay. Denies pain and discomfort. Denies SOB/ dyspnea. Denies chest pain, palpitations, headaches, dizziness. Denies fevers, chills, n/v/d. Denies dysuria. Physical Exam Vital signs: Vital Signs 03/31/18 09:25 03/31/18 11:49 03/31/18 12:00 Temperature Pulse Rate 76 78 Respiratory Rate 18 Blood Pressure 172/80 H 167/80 H Pulse Oximetry 98 03/31/18 15:55 03/31/18 16:00 03/31/18 20:00 Temperature 97.5 F L 98.2 F Pulse Rate 72 73 66 Respiratory Rate 18 18 Blood Pressure 158/91 H 184/88 H Pulse Oximetry 93 L 98 04/01/18 00:55 04/01/18 04:00 04/01/18 05:44 Temperature 97.7 F Pulse Rate 77 78 98 H Respiratory Rate 18 Blood Pressure 155/80 H Pulse Oximetry 93 L 04/01/18 08:00 Temperature 98.1 F Pulse Rate 76 Respiratory Rate 18 Blood Pressure 163/89 H Pulse Oximetry 96 Intake & Output 03/31/18 04/01/18 04/01/18 18:59 06:59 18:59 Intake Total 2200 / 2200 1000 / 1000 Output Total 1200 / 1200 800 / 800 Balance 1000 / 1000 200 / 200 Intake: IV 2200 / 2200 1000 / 1000 NS Inj 1,000 ML @ 70 mls/hr IV. 1999 / 1999 1000 / 1000 CONT .[id number] [facility] Rx#:[id number] Cipro 400 MG/200 ML Inj 400 mg 200 / 200 In 200 ml @ 200 mls/hr IV.SIG ONCE ONE Rx#:[id number] Output: Urine 1200 / 1200 800 / 800 Other: Date of Last Bowel Movement 03/31/18 # Bowel Movements 1 Narrative: GENERAL: This is a well-nourished, well-developed patient, in no apparent distress. SKIN: Warm and dry. HEENT: Normocephalic. Pupils equal round and reactive. Nose without bleeding. Airway patent. NECK: Trachea midline. No JVD. Supple. CARDIOVASCULAR: Regular rate and rhythm without murmurs, gallops, or rubs. RESPIRATORY: Clear to auscultation. Breath sounds equal bilaterally. No wheezes , rales, or rhonchi. GASTROINTESTINAL: Abdomen soft, non-tender, nondistended. Bowel Sounds normoactive x4. MUSCULOSKELETAL: Extremities without clubbing, cyanosis, or edema. NEUROLOGICAL: Awake and alert. Oriented to date, place, person. Moves all extremities equally. Normal speech. Results - Labs CBC & Chem 7: 03/30/18 18:15 03/30/18 18:15 Laboratory Results - last 24 hr 03/31/18 03/31/18 03/31/18 09:18 17:53 21:08 POC Glucose 244 H 301 H 304 H Triglycerides Cholesterol LDL Cholesterol, Calc HDL Cholesterol Cholesterol/HDL Ratio 04/01/18 04/01/18 06:51 08:16 POC Glucose 100 Triglycerides 46 Cholesterol 152 LDL Cholesterol, Calc 74 HDL Cholesterol 68.5 H Cholesterol/HDL Ratio 2.21 Microbiology 03/30/18 21:19 Catheterized Urine Urine Culture - Preliminary No growth in 24 hours 03/30/18 18:30 Blood - Peripheral Aerobic Blood Culture - Preliminary No growth in 1 day 03/30/18 18:30 Blood - Peripheral Anaerobic Blood Culture - Preliminary No growth in 1 day 03/30/18 18:35 Blood - Peripheral Aerobic Blood Culture - Preliminary No growth in 1 day 03/30/18 18:35 Blood - Peripheral Anaerobic Blood Culture - Preliminary No growth in 1 day - Imaging Impressions Head MRI 03/31/18 00:16 CONCLUSION: 1. Cerebral atrophy and chronic ischemic small vessel vasculopathy. 2. Multifocal punctate areas of high susceptibility artifact suggesting petechial hemorrhages which can be seen with hypertensive encephalopathy, trauma and amyloid. Head MRA 03/31/18 00:16 CONCLUSION: 1. Questionable focal narrowing in the left proximal cerebral artery likely artifactual. 2. No large vessel stenosis or aneurysm. 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 Syncopal episode, versus TIA Possible vagal syncope -CT of the head no acute intracranial abnormality -MRI/MRA normal MRI and MRA of the [place] -Carotid ultrasound minimal plaque but no hemodynamically significant stenosis is identified. -Neurology consulted appreciate recommendations. -Echocardiogram pending -EKGs SR with PVCs, cont telemetry monitoring -Serial troponin negative, serial CK negative -Consult cardiology appreciate recommendations -Rehab medicine consulted appreciate recommendation -Lipid profile. Atorvastatin started -Check orthostatic BP DM 2, uncontrolled -Check hemoglobin A1c -Insulin sliding scale. Monitor Accu-Cheks. -Levemir, increase dose 20 units subcu nightly, give 10units now HTN -Continue home medications Norvasc 5 mg daily, clonidine increased to every 12 hours, valsartan -We will increase Norvasc to 10 mg daily if BP continues to be elevated -Hydralazine as needed -Monitor BP trend -ASA 325 mg Urine abnormal -No indication for antibiotic use since urine bacteria is rare, negative leukoesterase, negative urine nitrite Blood cultures DONE -1 out of 4 bottles positive for Staphylococcus coag negative, this is probably contaminant. No indication to repeat BC DVT prop SCDs Code Status: Full code Discussed Condition With: Patient, nursing Discharge Planning: Plan to DC home when clinically improved. (1) Syncopal episodes Qualifiers: Syncope type: unspecified Qualified Code(s): R55 - Syncope and collapse (3) Altered mental status Qualifiers: Altered mental status type: transient alteration of awareness Qualified Code( s): R40.4 - Transient alteration of awareness
[2018-04-01] MEDS ORDERED: Insulin Detemir Inj 1,000 UNIT/10 ML Vial SQ ONE (10:15)
--- NOTE | 2018-04-01 14:18 | P.DCO ---
- Diagnosis (1) Syncopal episodes (2) Altered mental status - Physical Therapy Order: Evaluate and treat - Occupational Therapy Order: Evaluate and treat - Speech Therapy Order: To improve: Speech and communication skills - Home Health Nursing Order: Signs/symptoms of disease process, Nursing assessment with vital signs - Certification I have seen patient Scar Manley on 04/01/18. My clinical findings support the need for the requested home health care services because: Limited mobility due to disease progression, Deconditioned with increased weakness, Impaired cognition/judgement, High risk of falls I certify that my clinical findings support that this patient is homebound because: Impaired cognitive ability/safety, Unsteady gait/balance, Unsafe to leave home unassisted (1) Syncopal episodes Qualifiers: Syncope type: unspecified Qualified Code(s): R55 - Syncope and collapse (2) Altered mental status Qualifiers: Altered mental status type: transient alteration of awareness Qualified Code( s): R40.4 - Transient alteration of awareness
--- NOTE | 2018-04-01 15:38 | P.PNCA ---
<July Haney N - Last Filed: 04/01/18 15:24> Subjective Interval history: Pt resting in bed, no acute distress. Pt denies CP, pressure, palpitations, dizziness or SOB. Pt does c/o generalize body aches. Physical Exam Vital signs: Vital Signs 03/31/18 15:55 03/31/18 16:00 03/31/18 20:00 Temperature 97.5 F L 98.2 F Pulse Rate 72 73 66 Respiratory Rate 18 18 Blood Pressure 158/91 H 184/88 H Pulse Oximetry 93 L 98 04/01/18 00:55 04/01/18 04:00 04/01/18 05:44 Temperature 97.7 F Pulse Rate 77 78 98 H Respiratory Rate 18 Blood Pressure 155/80 H Pulse Oximetry 93 L 04/01/18 08:00 04/01/18 08:55 04/01/18 12:00 Temperature 98.1 F 98.3 F Pulse Rate 76 73 75 Respiratory Rate 18 18 Blood Pressure 163/89 H 149/70 H Pulse Oximetry 96 94 L Intake & Output 03/31/18 04/01/18 04/01/18 18:59 06:59 18:59 Intake Total 2200 / 2200 1000 / 1000 Output Total 1200 / 1200 800 / 800 Balance 1000 / 1000 200 / 200 Weight 83.824 kg Intake: IV 2200 / 2200 1000 / 1000 NS Inj 1,000 ML @ 70 mls/hr IV. 2000 / 2000 1000 / 1000 CONT .[id number] [facility] Rx#:[id number] Cipro 400 MG/200 ML Inj 400 mg 200 / 200 In 200 ml @ 200 mls/hr IV.SIG ONCE ONE Rx#:[id number] Output: Urine 1200 / 1200 800 / 800 Other: Date of Last Bowel Movement 03/31/18 03/31/18 # Bowel Movements 1 - Constitutional no acute distress - Routine HEENT Exam Head: Present: normocephalic Eye: Present: PERRL ENT: Present: mucous membranes moist - Routine Respiratory Exam Present: CTA bilaterally - Routine Cardiovascular Exam Present: RRR. Absent: gallop, rubs - Routine Abdominal Exam Present: soft - Routine Extremities Exam Present: edema, pulses intact, normal capillary refill Comments: Trace edema. - Routine Skin Exam Present: intact - Routine Neurological Exam Present: alert - Detailed Neurological Exam: Coma Scale Eye Opening: Spontaneous Verbal Response: Oriented Motor Response: Obey commands Graham Coma Scale Total: 15 Assessment and Plan - Assessment (1) Syncopal episodes Code(s): R55 - Syncope and collapse Status: Acute (2) Alcoholic dementia Code(s): F10.27 - Alcohol dependence with alcohol-induced persisting dementia Status: Acute (3) Hypertension Code(s): I10 - Essential (primary) hypertension Status: Acute (4) Diabetes mellitus Code(s): E11.9 - Type 2 diabetes mellitus without complications Status: Acute - Plan Pt will be monitored on telemetry. No cardiac events noted. Pt is currently being seen by neurology for evaluation. Pt c/o generalized body aches at this time. Continue current cardiac treatment plan. Will continue to follow during hospitalization. The patient was seen and evaluated by Dr. Anand who participated in care, management and decision making. <Natasha Anand - Last Filed: 04/01/18 16:01> Physical Exam Vital signs: Vital Signs 03/31/18 20:00 04/01/18 00:55 04/01/18 04:00 Temperature 98.2 F 97.7 F Pulse Rate 66 77 78 Respiratory Rate 18 18 Blood Pressure 184/88 H 155/80 H Pulse Oximetry 98 93 L 04/01/18 05:44 04/01/18 08:00 04/01/18 08:55 Temperature 98.1 F Pulse Rate 98 H 76 73 Respiratory Rate 18 Blood Pressure 163/89 H Pulse Oximetry 96 04/01/18 12:00 Temperature 98.3 F Pulse Rate 75 Respiratory Rate 18 Blood Pressure 149/70 H Pulse Oximetry 94 L Intake & Output 03/31/18 04/01/18 04/01/18 18:59 06:59 18:59 Intake Total 2200 / 2200 1000 / 1000 Output Total 1200 / 1200 800 / 800 Balance 1000 / 1000 200 / 200 Weight 184 lb 12.8 oz Intake: IV 2200 / 2200 1000 / 1000 NS Inj 1,000 ML @ 70 mls/hr IV. 1999 / 1999 1000 / 1000 CONT .[id number] [facility] Rx#:[id number] Cipro 400 MG/200 ML Inj 400 mg 200 / 200 In 200 ml @ 200 mls/hr IV.SIG ONCE ONE Rx#:[id number] Output: Urine 1200 / 1200 800 / 800 Other: Date of Last Bowel Movement 03/31/18 03/31/18 # Bowel Movements 1 Assessment and Plan - Assessment (1) Syncopal episodes Code(s): R55 - Syncope and collapse Status: Acute (2) Alcoholic dementia Code(s): F10.27 - Alcohol dependence with alcohol-induced persisting dementia Status: Acute (3) Hypertension Code(s): I10 - Essential (primary) hypertension Status: Acute (4) Diabetes mellitus Code(s): E11.9 - Type 2 diabetes mellitus without complications Status: Acute - Attending Attestation Patient seen and examined. I reviewed and agree with the findings and the plan presented. Continue monitoring. Neurology evaluation in progress. <July Haney - Last Filed: 04/01/18 15:24> (1) Syncopal episodes Qualifiers: Syncope type: unspecified Qualified Code(s): R55 - Syncope and collapse <Natasha Anand - Last Filed: 04/01/18 16:01> (1) Syncopal episodes Qualifiers: Syncope type: unspecified Qualified Code(s): R55 - Syncope and collapse
--- NOTE | 2018-04-01 16:57 | P.PNNEU ---
Subjective Subjective Comments: No acute events reported His ex- gave additional hx--he has had several spells of sudden LOC--she states sometimes he has "twitching " of arms and legs and urinary incontinence. After the episodes is usually lethargic and confused for a period Active Medications: Active Medications Generic Name Dose Route Start Last Admin Trade Name Lor PRN Reason Stop Dose Admin Amlodipine Besylate 5 mg 03/31/18 14:39 04/01/18 08:49 Norvasc PO 5 mg DAILY [facility] Administration Aspirin 325 mg 04/01/18 09:00 04/01/18 08:48 Aspirin PO 325 mg DAILY [facility] Administration Atorvastatin Calcium 10 mg 03/31/18 14:45 04/01/18 08:48 Lipitor PO 10 mg DAILY [facility] Administration Clonidine HCl 0.1 mg 03/31/18 21:00 04/01/18 08:48 Catapres PO 0.1 mg Q12HR [facility] Administration Dextrose 50 ml 03/31/18 00:14 D50w Vial IV.PUSH UNSCH PRN PER HYPOGLYCEMIA PROTOCOL Ergocalciferol 50,000 unit 04/01/18 09:00 04/01/18 08:46 Vitamind2 PO 50,000 unit Mo [facility] Administration Glucagon 1 mg 03/31/18 00:14 Glucagon Inj OTHER UNSCH PRN for Hypoglycemia Protocol Heparin Sodium (Porcine) 5,000 units 03/31/18 00:15 04/01/18 08:47 Heparin Inj SQ 5,000 units Q8H [facility] Administration Hydralazine HCl 10 mg 03/31/18 17:45 Apresoline PO QID PRN SBP> OR = 180, DBP> OR = 100 Sodium Chloride 1,000 mls @ 70 mls/hr 03/31/18 00:15 04/01/18 05:10 Ns Inj IV.CONT 70 mls/hr .[id number] [facility] Administration Insulin Aspart 0 unit 03/31/18 08:00 04/01/18 13:30 Novolog Insulin Suppl Scale Inj SQ 1 unit ACHS [facility] Administration Protocol Insulin Detemir 20 unit 04/02/18 09:00 Levemir Inj SQ DAILY [facility] Insulin Detemir 10 unit 04/01/18 18:00 Levemir Inj SQ DAILY@1800 [facility] Levetiracetam 500 mg 04/01/18 21:00 Keppra PO BID [facility] Multivitamins 1 tab 04/01/18 09:00 04/01/18 08:49 Theragran PO 1 tab DAILY [facility] Administration Sodium Chloride 2 ml 03/30/18 18:12 Ns Flush IV.FLUSH PRN PRN FLUSH AFTER USING IV ACCESS Sodium Chloride 2 ml 03/31/18 09:00 04/01/18 08:44 Ns Flush IV.FLUSH Not Given BID [facility] Sodium Chloride 2 ml 03/31/18 00:14 Ns Flush IV.FLUSH PRN PRN FLUSH AFTER USING IV ACCESS Tamsulosin HCl 0.8 mg 04/01/18 09:00 04/01/18 08:46 Flomax PO 0.8 mg DAILY [facility] Administration Thiamine HCl 100 mg 04/01/18 09:00 04/01/18 08:47 Vitamin B1 PO 100 mg DAILY [facility] Administration Valsartan 320 mg 04/01/18 09:00 04/01/18 08:46 Diovan PO 320 mg DAILY [facility] Administration Allergies/Adverse Reactions: Allergies Allergy/AdvReac Type Severity Reaction Status Date / Time No Known Allergies Allergy Mild Uncoded 08/22/08 09:58 Physical Exam Vital signs: Vital Signs 03/31/18 20:00 04/01/18 00:55 04/01/18 04:00 Temperature 98.2 F 97.7 F Pulse Rate 66 77 78 Respiratory Rate 18 18 Blood Pressure 184/88 H 155/80 H Pulse Oximetry 98 93 L 04/01/18 05:44 04/01/18 08:00 04/01/18 08:55 Temperature 98.1 F Pulse Rate 98 H 76 73 Respiratory Rate 18 Blood Pressure 163/89 H Pulse Oximetry 96 04/01/18 12:00 04/01/18 16:00 Temperature 98.3 F 97.9 F Pulse Rate 75 81 Respiratory Rate 18 18 Blood Pressure 149/70 H 157/73 H Pulse Oximetry 94 L 95 Intake & Output 03/31/18 04/01/18 04/01/18 18:59 06:59 18:59 Intake Total 2200 / 2200 1000 / 1000 Output Total 1200 / 1200 800 / 800 Balance 1000 / 1000 200 / 200 Weight 83.824 kg Intake: IV 2200 / 2200 1000 / 1000 NS Inj 1,000 ML @ 70 mls/hr IV. 1999 / 1999 1000 / 1000 CONT .[id number] [facility] Rx#:[id number] Cipro 400 MG/200 ML Inj 400 mg 200 / 200 In 200 ml @ 200 mls/hr IV.SIG ONCE ONE Rx#:[id number] Output: Urine 1200 / 1200 800 / 800 Other: Date of Last Bowel Movement 03/31/18 03/31/18 # Bowel Movements 1 - Routine Neurological Exam alert, oriented, follow commands CN intact MOTOR 5/5 BUE Objective Laboratory Results - last 24 hr 03/31/18 03/31/18 04/01/18 17:53 21:08 06:51 POC Glucose 301 H 304 H Triglycerides 46 Cholesterol 152 LDL Cholesterol, Calc 74 HDL Cholesterol 68.5 H Cholesterol/HDL Ratio 2.21 04/01/18 04/01/18 04/01/18 08:16 12:13 16:15 POC Glucose 100 191 H 269 H Triglycerides Cholesterol LDL Cholesterol, Calc HDL Cholesterol Cholesterol/HDL Ratio Microbiology 03/30/18 18:35 Aerobic Blood Culture - Preliminary Blood - Peripheral Staphylococcus coag negative Anaerobic Blood Culture - Preliminary No growth in 2 days 03/30/18 21:19 Urine Culture - Final Catheterized Urine No growth in 48 hours 03/30/18 18:30 Aerobic Blood Culture - Preliminary Blood - Peripheral No growth in 2 days Anaerobic Blood Culture - Preliminary No growth in 2 days Review/Management - Diagnosis (1) Syncope and collapse Code(s): R55 - Syncope and collapse Status: Acute Current Visit: Yes - Review/Management Plan: By history the spells could be seizures even with normal EEG THerefore, start keppra 500 mg bid empirically Ok from neuro standpoint to dc home tomorrow on keppra 500 mg bid and follow up with me as outpatient in [address] weeks. He should not drive for 6 months
[2018-04-01 17:42] LABS: Hemoglobin A1c 8.6 % (4.3-6.0)
[2018-04-01] MEDS ORDERED: Insulin Detemir Inj 1,000 UNIT/10 ML Vial SQ SCH ×2 (18:00)
[2018-04-01] MEDS: levETIRAcetam 500 MG Tablet PO SCH (22:07)
[2018-04-02] MEDS: Heparin - SQ 10,000 UNITS/ML Vial SQ SCH ×2 (00:11→11:22)
[2018-04-02] MEDS: Insulin NovoLOG Aspart Correctional Sugar Inj SQ SCH ×2 (08:26→13:30)
[2018-04-02] MEDS ORDERED: Insulin Detemir Inj 1,000 UNIT/10 ML Vial SQ SCH (09:00)
[2018-04-02] MEDS: Aspirin 325 MG Tablet PO SCH (11:22)
[2018-04-02] MEDS: levETIRAcetam 500 MG Tablet PO SCH (11:23)
[2018-04-02] MEDS: amLODIPine 5 MG Tablet PO SCH (11:23)
--- NOTE | 2018-04-02 11:56 | ECHRPT ---
Indication: cva/tia CONCLUSIONS The left ventricular systolic function is hyperdynamic with an estimated ejection fraction in the ra nge of 65- 70%. Normal left ventricular size. Wall thickness is normal. No obvious regional wall motion abnormalities are present but cannot exclude inferior hpokinesis. Moderate mitral annular calcification. Slight aortic valve sclerosis is present. There is trace tricuspid valve regurgitation. Normal estimated pulmonary pressures. The pulmonary valve is not well visualized. The inferior vena cava was not well visualized. BP: / HR: Rhythm: Sinus Technical Quality:Fair FINDINGS LEFT VENTRICLE The left ventricular systolic function is hyperdynamic with an estimated ejection fraction in the ra nge of 65- 70%. Normal left ventricular size. Wall thickness is normal. No obvious regional wall motion abnormalities are present but cannot exclude inferior hpokinesis. RIGHT VENTRICLE Normal right ventricular size and systolic function. LEFT ATRIUM The left atrial size is normal. RIGHT ATRIUM The right atrial size is normal. ATRIAL SEPTUM Normal atrial septal thickness without atrial level shunting by limited color doppler interrogation. AORTA The aortic root and proximal ascending aorta are normal in size on limited imaging. MITRAL VALVE Moderate mitral annular calcification. AORTIC VALVE Trileaflet aortic valve. Slight aortic valve sclerosis is present. TRICUSPID VALVE Structurally normal tricuspid valve. There is trace tricuspid valve regurgitation. Normal estimated pulmonary pressures. PULMONARY VALVE The pulmonary valve is not well visualized. VESSELS The inferior vena cava was not well visualized. PERICARDIUM No pericardial effusion. Ned Martinez MD (Electronically Signed) Final Date:02 April 2018 11:55
--- NOTE | 2018-04-02 12:06 | P.DS ---
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 Patient states he does not recall after passing out from recliner and he woke up almost already being wheeled inside the hospital by the ambulance. States he has multiple mini strokes before and also has diabetes. On exam, he denies diplopia, visual changes, unilateral weakness or any weakness at all. Denies pain and discomfort. Denies SOB/ dyspnea. Denies chest pain, palpitations, headaches, dizziness. Denies fevers, chills, n/v/d. Denies dysuria, abdominal pain, cramping. Tolerating p.o. diet. 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 Syncopal episode, versus TIA, Possible vagal syncope: CT of the head no acute intracranial abnormality. MRI/MRA normal MRI and MRA of the [place]. Carotid ultrasound minimal plaque but no hemodynamically significant stenosis is identified. Neurology consulted, appreciate recommendations, possible seizures, started on Keppra 500mg bid. Echocardiogram with EF 65-70%. EKGs SR with PVCs, cont telemetry monitoring. Serial troponin negative, serial CK negative. Consult cardiology, appreciate recommendations. Rehab medicine consulted appreciate recommendation. Patient and family have declined any rehab or HHC as he is already set up to go to outpatient rehab with [facility]. Lipid profile completed, LDL 74, cholesterol 152, low dose Atorvastatin started as LDL goal less than 70 with hx of DM. Cleared for discharge by neurology. Discussed extensively with the patient and family at bedside. The patient has upcoming appointments arranged with neurology Dr. Sanchez and making department preparer Dr. Salgado, encouraged to keep appointments. DM 2, uncontrolled: Hemoglobin A1c 8.6. Insulin sliding scale. Monitor Accu- Cheks. Levemir, increase dose 20 units subcu daily and give 10units at 6pm. Blood sugars better controlled. Stable for discharge. HTN: Continue home medications Norvasc 5 mg daily, clonidine increased to every 12 hours, continue patient's valsartan. Hydralazine as needed. BP improving. ASA 325 mg. Stable for discharge. Urine abnormal: No indication for antibiotic use since urine bacteria is rare, negative leuks, negative urine nitrite. Abnormal Blood cultures: 1 out of 4 bottles positive for Staphylococcus coag negative, this is probably contaminant. No indication to repeat BC, afebrile, no leukocytosis. - Time Spent with Patient Total time spent providing and/or coordinating discharge services: Greater than 30 minutes - Quality: VTE Deep Vein Thrombosis/Pulmonary Embolism Present on Admission: No Exam Vital signs: Vital Signs 04/01/18 16:00 04/01/18 17:40 04/01/18 19:46 Temperature 97.9 F Pulse Rate 81 103 H Respiratory Rate 18 Blood Pressure 157/73 H Pulse Oximetry 95 95 04/01/18 20:00 04/02/18 00:00 04/02/18 04:00 Temperature 98.2 F 98.1 F 97.5 F L Pulse Rate 88 78 66 Respiratory Rate 17 18 16 Blood Pressure 171/89 H 156/80 H 162/86 H Pulse Oximetry 95 94 L 95 04/02/18 07:51 Temperature 97.8 F Pulse Rate 65 Respiratory Rate 14 Blood Pressure 161/84 H Pulse Oximetry 97 Intake & Output 04/01/18 04/02/18 04/02/18 18:59 06:59 18:59 Intake Total 960 / 960 1900 / 1900 Output Total 800 / 800 1100 / 1100 Balance 160 / 160 800 / 800 Weight 83.824 kg 83.5 kg Intake: IV 1000 / 1000 NS Inj 1,000 ML @ 70 mls/hr IV. 1000 / 1000 CONT .[id number] [facility] Rx#:[id number] Oral 960 / 960 900 / 900 Output: Urine 800 / 800 1100 / 1100 Other: # Voids 3 Date of Last Bowel Movement 03/31/18 Narrative: GENERAL: Well-nourished, well-developed elderly male patient in [facility]. SKIN: Warm and dry. No rash. HEENT: Normocephalic. Atraumatic. Pupils equal and round. Mucous membranes pink and moist. CARDIOVASCULAR: Regular rate and rhythm. No murmur appreciated. RESPIRATORY: No accessory muscle use. Clear to auscultation. Breath sounds equal bilaterally. GASTROINTESTINAL: Abdomen soft, non-tender, nondistended. Normoactive bowel sounds x4. MUSCULOSKELETAL: No obvious deformities. Extremities without clubbing, cyanosis , or edema. NEUROLOGICAL: Awake and alert. No obvious cranial nerve deficits. Motor grossly within normal limits. Moving all extremities spontaneously. Normal speech. PSYCHIATRIC: Appropriate mood and affect; insight and judgment limited. Results Procedures completed during hospitalization: None. Labs on day of discharge: Labs from last 24 hours 04/02/18 04/02/18 04/01/18 08:25 00:14 21:52 POC Glucose 125 H 242 H 270 H Hemoglobin A1c 04/01/18 04/01/18 04/01/18 18:01 16:15 12:13 POC Glucose 255 H 269 H 191 H Hemoglobin A1c 04/01/18 06:51 POC Glucose Hemoglobin A1c 8.6 H Preliminary micro results at discharge 03/30/18 18:30 Aerobic Blood Culture - Preliminary Blood - Peripheral No growth in 3 days Anaerobic Blood Culture - Preliminary No growth in 3 days 03/30/18 18:35 Aerobic Blood Culture - Preliminary Blood - Peripheral Staphylococcus coag negative Anaerobic Blood Culture - Preliminary No growth in 3 days - Impressions ITS Impressions Chest X-Ray 03/30/18 18:12 CONCLUSION: No acute findings. Elevated right hemidiaphragm. Mild basilar atelectasis. Head CT 03/30/18 18:12 CONCLUSION: 1. No acute findings. Cortical volume loss with mild ventricular prominence and likely chronic white matter ischemic changes. Carotid Doppler Study 03/31/18 00:00 CONCLUSION: No hemodynamically significant stenosis in either carotid artery Head MRI 03/31/18 00:16 CONCLUSION: 1. Cerebral atrophy and chronic ischemic small vessel vasculopathy. 2. Multifocal punctate areas of high susceptibility artifact suggesting petechial hemorrhages which can be seen with hypertensive encephalopathy, trauma and amyloid. Head MRA 03/31/18 00:16 CONCLUSION: 1. Questionable focal narrowing in the left proximal cerebral artery likely artifactual. 2. No large vessel stenosis or aneurysm. Discharge Plan - Discharge Disposition Patient Disposition: 01 Discharge Home - Discharge Condition Condition: Stable - Discharge Order Discharge Orders: Discharge Order (Routine); Ordered 04/02/18 Ordered By: Molly Licea - Discharge Details Anticipated Discharge Date: 04/02/18 - Physicians Team Primary Care Provider: Tessie Madera Attending Provider: Anisha Mccabe Other Providers: Yinka Mahoney MD, PhD ; Roly Snow MD ; Natasha Anand MD
[2018-04-02] MEDS: Sod Chloride 0.9% Inj 1,000 ML IV.CONT SCH (13:32)
--- NOTE | 2018-04-02 16:17 | P.PNCA ---
<July Haney N - Last Filed: 04/02/18 16:10> Subjective Interval history: Pt denies any CP, pressure, palpitations, dizziness or SOB. Physical Exam Vital signs: Vital Signs 04/01/18 17:40 04/01/18 19:46 04/01/18 20:00 Temperature 98.2 F Pulse Rate 103 H 88 Respiratory Rate 17 Blood Pressure 171/89 H Pulse Oximetry 95 95 04/02/18 00:00 04/02/18 04:00 04/02/18 07:51 Temperature 98.1 F 97.5 F L 97.8 F Pulse Rate 78 66 65 Respiratory Rate 18 16 14 Blood Pressure 156/80 H 162/86 H 161/84 H Pulse Oximetry 94 L 95 97 04/02/18 08:01 04/02/18 11:43 04/02/18 12:00 Temperature 98.3 F Pulse Rate 60 67 64 Respiratory Rate 14 Blood Pressure 161/81 H Pulse Oximetry 94 L Intake & Output 04/01/18 04/02/18 04/02/18 18:59 06:59 18:59 Intake Total 960 / 960 1900 / 1900 1000 / 1000 Output Total 800 / 800 1100 / 1100 Balance 160 / 160 800 / 800 1000 / 1000 Weight 83.824 kg 83.5 kg Intake: IV 1000 / 1000 1000 / 1000 NS Inj 1,000 ML @ 70 mls/hr IV. 1000 / 1000 1000 / 1000 CONT .[id number] [facility] Rx#:[id number] Oral 960 / 960 900 / 900 Output: Urine 800 / 800 1100 / 1100 Other: # Voids 3 Date of Last Bowel Movement 03/31/18 04/02/18 # Bowel Movements 1 - Constitutional no acute distress - Routine HEENT Exam Head: Present: normocephalic Eye: Present: PERRL ENT: Present: mucous membranes moist - Routine Respiratory Exam Present: CTA bilaterally - Routine Cardiovascular Exam Present: RRR, S1, S2 - Routine Abdominal Exam Present: soft - Routine Extremities Exam Present: full ROM, pulses intact, normal capillary refill. Absent: edema - Routine Skin Exam Present: intact - Routine Neurological Exam Present: oriented X3 pt does have dementia - Routine Psychiatric Exam Present: normal affect Assessment and Plan - Assessment (1) Syncopal episodes Code(s): R55 - Syncope and collapse Status: Acute (2) Alcoholic dementia Code(s): F10.27 - Alcohol dependence with alcohol-induced persisting dementia Status: Acute (3) Hypertension Code(s): I10 - Essential (primary) hypertension Status: Acute (4) Diabetes mellitus Code(s): E11.9 - Type 2 diabetes mellitus without complications Status: Acute - Plan Pt will be monitored on telemetry. No cardiac events noted. SR on monitor. Echo scheduled for today. Neurology evaluation in progress. at bedside and plan of care discussed with her. Continue current cardiac treatment plan. Increase activities, PT. Will continue to follow during hospitalization. The patient was seen and evaluated by Dr. Anand who participated in care, management and decision making. <Natasha Anand - Last Filed: 04/02/18 21:51> Physical Exam Vital signs: Vital Signs 04/02/18 00:00 04/02/18 04:00 04/02/18 07:51 Temperature 98.1 F 97.5 F L 97.8 F Pulse Rate 78 66 65 Respiratory Rate 18 16 14 Blood Pressure 156/80 H 162/86 H 161/84 H Pulse Oximetry 94 L 95 97 04/02/18 08:01 04/02/18 11:43 04/02/18 12:00 Temperature 98.3 F Pulse Rate 60 67 64 Respiratory Rate 14 Blood Pressure 161/81 H Pulse Oximetry 94 L Intake & Output 04/02/18 04/02/18 04/03/18 06:59 18:59 06:59 Intake Total 1900 / 1900 1000 / 1000 Output Total 1100 / 1100 Balance 800 / 800 1000 / 1000 Weight 184 lb 1.376 oz Intake: IV 1000 / 1000 1000 / 1000 NS Inj 1,000 ML @ 70 mls/hr IV. 1000 / 1000 1000 / 1000 CONT .[id number] [facility] Rx#:[id number] Oral 900 / 900 Output: Urine 1100 / 1100 Other: Date of Last Bowel Movement 04/02/18 # Bowel Movements 1 Assessment and Plan - Assessment (1) Syncopal episodes Code(s): R55 - Syncope and collapse Status: Acute (2) Alcoholic dementia Code(s): F10.27 - Alcohol dependence with alcohol-induced persisting dementia Status: Acute (3) Hypertension Code(s): I10 - Essential (primary) hypertension Status: Acute (4) Diabetes mellitus Code(s): E11.9 - Type 2 diabetes mellitus without complications Status: Acute - Attending Attestation Patient seen and examined. I reviewed and agree with the findings and plan presented. Continue current program. Will obtain echo. <July Haney - Last Filed: 04/02/18 16:10> (1) Syncopal episodes Qualifiers: Syncope type: unspecified Qualified Code(s): R55 - Syncope and collapse <Natasha Anand - Last Filed: 04/02/18 21:51> (1) Syncopal episodes Qualifiers: Syncope type: unspecified Qualified Code(s): R55 - Syncope and collapse
== END 2018-04-02 17:09 | disposition home or self-care (01) ==
LOC: NEPE 18:04 → NEPGCP 18:04 → NEDA 18:04 → NEPGCP 03-31 01:32
PROVIDERS: ADMIT Family Medicine; ATTEND Family Medicine
DX: R56.9 Unspecified convulsions; R82.90 Unspecified abnormal findings in urine; J98.11 Atelectasis; I69.354 Hemiplegia and hemiparesis following cerebral infarction affecting left non-dominant side; R23.3 Spontaneous ecchymoses; I35.0 Nonrheumatic aortic (valve) stenosis; R41.82 Altered mental status, unspecified; K59.00 Constipation, unspecified; I07.1 Rheumatic tricuspid insufficiency; E11.65 Type 2 diabetes mellitus with hyperglycemia; I45.10 Unspecified right bundle-branch block; I10 Essential (primary) hypertension; Z79.82 Long term (current) use of aspirin; Z79.899 Other long term (current) drug therapy; R94.31 Abnormal electrocardiogram [ECG] [EKG]; Z79.4 Long term (current) use of insulin; Z91.81 History of falling; N39.0 Urinary tract infection, site not specified; R47.01 Aphasia; I63.9 Cerebral infarction, unspecified; Z83.3 Family history of diabetes mellitus; F01.50 Vascular dementia, unspecified severity, without behavioral disturbance, psychotic disturbance, mood disturbance, and anxiety; F10.10 Alcohol abuse, uncomplicated

== ENCOUNTER 2018-05-28 16:05 | Observation (INO) ==
[2018-05-28] MEDS ORDERED: Sod Chloride 0.9% Inj 1,000 ML IV.SIG ONE (16:18)
[2018-05-28 16:41] LABS: Eos # (Auto) 0.3 th/mm3 (0.0-0.4); Eos % (Auto) 6.9 % (0.0-4.0); Hematocrit 41.7 % (39.0-51.0); Hemoglobin 14.3 gm/dL (13.0-17.0); Lymph # (Auto) 1.6 th/mm3 (1.0-4.8); Lymph % (Auto) 35.2 % (9.0-44.0); Mean Corpuscular HGB Conc 34.1 % (32.0-36.0); Mean Corpuscular Hemoglobin 32.4 pg (27.0-34.0); Mean Corpuscular Volume 94.9 fL (80.0-100.0); Mean Platelet Volume 8.1 fL (7.0-11.0); Mono # (Auto) 0.5 th/mm3 (0.0-0.9); Mono % (Auto) 10.3 % (0.0-8.0); Neut # (Auto) 2.1 th/mm3 (1.8-7.7); Neut % (Auto) 46.6 % (16.0-70.0); Platelet Count 228 th/mm3 (150-450); Red Cell Distribution Width 14.2 % (11.6-17.2); White Blood Count 4.5 th/mm3 (4.0-11.0)
[2018-05-28 16:51] LABS: Activated Partial Thrombo Time 24.2 sec (24.3-30.1); INR 1.1 Ratio; Prothrombin Time 11.1 sec (9.8-11.6)
--- NOTE | 2018-05-28 16:59 | XR ---
EXAM DATE: 05/28/2018 4:52 PM EDT AGE/SEX: 77 years / Male INDICATIONS: . Short of breath with chest pain. CLINICAL DATA: This is the patient's initial encounter. Patient reports that signs and symptoms have been present for 1 day and indicates a pain score of 1/10. MEDICAL/SURGICAL HISTORY: Cerebrovascular disease. Hypertension. Diabetes mellitus type II. N one. COMPAR[place]: [facility] [place]. . FINDINGS: PA and lateral views of the chest demonstrate the lungs to be symmetrically aerated without evidence of mass, infiltrate or effusion. Mild elevation of right hemidiaphragm. The cardiomediastinal contour s are unremarkable and stable. Osseous structures are intact and stable. No significant changes. CONCLUSION: No acute intrathoracic disease. Stable examination. Electronically signed by: Raffaele Buckner MD 05/28/2018 4:58 PM EDT
[2018-05-28 17:07] LABS: Alanine Aminotransferase 25 U/L (12-78); Albumin 3.9 g/dL (3.4-5.0); Anion Gap 12 meq/L (5-15); Aspartate Aminotransferase 14 U/L (15-37); Blood Urea Nitrogen 14 mg/dL (7-18); Carbon Dioxide 25.3 meq/L (21.0-32.0); Chloride 92 meq/L (98-107); Glomerular Filtration Rate Greater Than 89 mL/min (>89); Glucose,Random 258 mg/dL (74-106); Magnesium 1.8 mg/dL (1.5-2.5); Potassium 3.8 meq/L (3.5-5.1); Sodium 129 meq/L (136-145)
--- NOTE | 2018-05-28 17:10 | CT ---
EXAM DATE: 05/28/2018 5:07 PM EDT AGE/SEX: 77 years / Male INDICATIONS: Syncopal episode after working out in rehab. CLINICAL DATA: This is the patient's initial encounter. Patient reports that signs and symptoms have been present for 1 day and indicates a pain score of 5/10. MEDICAL/SURGICAL HISTORY: Cerebrovascular disease. Transient ischemic attack. Diabetes. Hyperten zoltan. None. RADIATION DOSE: 56.35 CTDI (mGy) ; Patient motion [place] [facility] [place]. . TECHNIQUE: CT of the head without contrast. Using automated exposure control and adjustment of the mA and/or kV according to patient size, radiation dose was kept as low as reasonably achievable to ob tain optimal diagnostic quality images. DICOM format image data is available electronically for revi ew and comparison. FINDINGS: Cerebrum: The ventricles are normal for age. Bilateral cortical atrophy and chronic white matter flo nges. No evidence of midline shift, mass lesion, hemorrhage or acute infarction. No extraaxial fluid collections are seen. Posterior Fossa: The cerebellum and brainstem are intact. The 4th ventricle is midline. The cerebe llopontine angle is unremarkable. Extracranial: The visualized portion of the orbits is intact. Skull: The calvaria is intact. No evidence of skull fracture. Stable examination compared to the prior study. CONCLUSION: 1. No focal or acute intracranial hemorrhage. 2. Stable bilateral cortical atrophy with no significant change compared to the prior exam. . Electronically signed by: Raffaele Buckner MD 05/28/2018 5:08 PM EDT
[2018-05-28 17:11] LABS: Alkaline Phosphatase 32 U/L (45-117); Total Protein 6.7 g/dL (6.4-8.2)
--- NOTE | 2018-05-28 18:03 | ED ---
HPI General Chief Complaint: Syncope Stated Complaint: poss syncope/evac Time Seen by Provider: 05/28/18 16:16 Source: patient and family Mode of arrival: EMS History of Present Illness HPI narrative: Patient is a 77-year-old male with history of hypertension, diabetes, TIA, CVA, presents the emergency room after he had a syncopal episode today. Patient's family reports that patient had a episode of confusion last night. Reports that he usually has confusions prior to having a TIA episode. Reports that he was at rehab today and had a syncopal episode. Family reports that patient is being worked up for his syncope as Dr. Mahoney, his neurologist thinks that he is having focal seizures. Patient is currently taking Keppra for treatment of these focal seizures versus TIA. Patient did see Dr. Salgado , mutuel clerk for this and was started on Plavix. Patient has had 5 of these episodes similar today in the past 3 months and family were told that patient was having a TIA vs seizure episode. Patient's only complaint right now is generalized weakness. Related Data Home Medications Medication Instructions Recorded Confirmed atorvastatin 10 mg PO HS 03/31/18 05/28/18 docusate sodium 100 mg PO HS 03/31/18 05/28/18 ergocalciferol (vitamin D2) 50,000 unit PO QWEEK 03/31/18 05/28/18 tamsulosin 0.8 mg PO HS 03/31/18 05/28/18 thiamine HCl (vitamin B1) 100 mg PO DAILY 03/31/18 05/28/18 aspirin 81 mg PO DAILY 05/28/18 05/28/18 clopidogrel [Plavix] 75 mg PO DAILY 05/28/18 05/28/18 geriatric [id number] 1 tab PO DAILY 05/28/18 05/28/18 [Spectravite Senior] insulin aspart U-100 [Novolog 1 sliding scale dose SUB-Q UD 05/28/18 05/28/18 U-100 Insulin aspart] insulin detemir U-100 [Levemir 14 unit SUB-Q HS 05/28/18 05/28/18 U-100 Insulin] insulin detemir U-100 [Levemir 20 unit SUB-Q QAM 05/28/18 05/28/18 U-100 Insulin] irbesartan 150 mg PO BID 05/28/18 05/28/18 metformin 500 mg PO BID 05/28/18 05/28/18 polyethylene glycol 3350 [Purelax] 17 gm PO DAILY PRN 05/28/18 05/28/18 psyllium husk [Metamucil] 2 tbsp PO DAILY 05/28/18 05/28/18 Previous Rx's Medication Instructions Recorded levetiracetam [Keppra] 500 mg PO BID #60 tab 04/02/18 Allergies Allergy/AdvReac Type Severity Reaction Status Date / Time No Known Allergies Allergy Mild Uncoded 08/22/08 09:58 Review of Systems ROS: all other systems reviewed are negative [facility] Medical History Medical History Alcohol abuse (Acute) CVA (cerebral vascular accident) (Acute) Diabetes (Acute) Hypertension (Acute) TIA (transient ischemic attack) (Acute) Surgical History Surgical History History of right hip replacement (Acute) Family History Family History Grandparent No problems noted. Father Family history of diabetes mellitus Social History Social History Substance History: Past History Second Hand Smoke Exposure: No Smoking Status: Never smoker How Often Do You Have a Drink Containing Alcohol: Never Recent Travel in [facility] within the Last 8 Weeks: No Recent Out of Country Travel within the Last 8 Weeks: No Immunization History Tetanus Immunization: <5 Years Exam Narrative Exam Narrative: GENERAL: Mild distress SKIN: Focused skin assessment warm/dry. HEAD: Atraumatic. Normocephalic. EYES: Pupils equal and round. No scleral icterus. No injection or drainage. ENT: No nasal bleeding or discharge. Mucous membranes pink and moist. NECK: Trachea midline. No JVD. CARDIOVASCULAR: Regular rate and rhythm. No murmur appreciated. RESPIRATORY: No accessory muscle use. Clear to auscultation. Breath sounds equal bilaterally. GASTROINTESTINAL: Abdomen soft, non-tender, nondistended. Hepatic and splenic margins not palpable. MUSCULOSKELETAL: No obvious deformities. No clubbing. No cyanosis. No edema. NEUROLOGICAL: Awake and alert. No obvious cranial nerve deficits. Motor grossly within normal limits. Normal speech. Course Initial Documented Vital Signs Temperature 97.9 F 05/28/18 16:12 Pulse Rate 70 05/28/18 16:12 Respiratory Rate 17 05/28/18 16:12 Blood Pressure 151/76 H 05/28/18 16:12 Pulse Oximetry 94 L 05/28/18 16:12 Last Documented Vital Signs Temperature 97.9 F 05/28/18 16:12 Pulse Rate 71 05/28/18 17:34 Respiratory Rate 18 05/28/18 17:34 Blood Pressure 137/81 05/28/18 17:34 Pulse Oximetry 96 05/28/18 17:34 Medical Decision Making MDM Narrative Medical decision making narrative: During the course of the patients emergency department visit, the patients history, examination, and differential diagnosis were reviewed with the patient. The patient was placed on a flat hammerer with oximetry and frequent blood pressure monitoring. The patient had an IV access obtained and blood work sent for analysis. The patient was initially provided aspirin Lab work including ct were reviewed. Plan to obs for tia vs seizure workup. Case reviewed with Dr. George who accepts pt to service Medical Screen Exam Complete: Yes Emergency Medical Condition: Yes Differential Diagnosis Differential Diagnosis: CVA, TIA, electrolyte abnormality, intracranial hemorrhage Medical Records Medical records reviewed: Yes I reviewed the patient's medical records. Lab Data Lab results reviewed: Yes I reviewed the patient's lab results. Result diagrams: 05/28/18 16:00 05/28/18 16:20 Lab Results 05/28/18 05/28/18 05/28/18 Range/Units 16:00 16:00 16:20 WBC 4.5 (4.0-11.0) th/mm3 RBC 4.40 L (4.50-5.90) mil/mm3 Hgb 14.3 (13.0-17.0) gm/dL Hct 41.7 (39.0-51.0) % MCV 94.9 (80.0-100.0) fL MCH 32.4 (27.0-34.0) pg MCHC 34.1 (32.0-36.0) % RDW 14.2 (11.6-17.2) % Plt Count 228 (150-450) th/mm3 MPV 8.1 (7.0-11.0) fL Neut % (Auto) 46.6 (16.0-70.0) % Lymph % (Auto) 35.2 (9.0-44.0) % Dent % (Auto) 10.3 H (0.0-8.0) % Eos % (Auto) 6.9 H (0.0-4.0) % Baso % (Auto) 1.0 (0.0-2.0) % Neut # (Auto) 2.1 (1.8-7.7) th/mm3 Lymph # (Auto) 1.6 (1.0-4.8) th/mm3 Dent # (Auto) 0.5 (0.0-0.9) th/mm3 Eos # (Auto) 0.3 (0.0-0.4) th/mm3 Baso # (Auto) 0.0 (0.0-0.2) th/mm3 WBC Differential . Differential Comment Auto diff final PT 11.1 (9.8-11.6) sec INR 1.1 Ratio APTT 24.2 L (24.3-30.1) sec Sodium (136-145) meq/L Potassium (3.5-5.1) meq/L Chloride (98-107) meq/L Carbon Dioxide (21.0-32.0) meq/L Anion Gap (5-15) meq/L BUN (7-18) mg/dL Creatinine (0.60-1.30) mg/dL Estimated GFR (>89) mL/min Random Glucose (74-106) mg/dL Calcium (8.5-10.1) mg/dL Magnesium (1.5-2.5) mg/dL Total Bilirubin (0.2-1.0) mg/dL AST (15-37) U/L ALT (12-78) U/L Alkaline Phosphatase (45-117) U/L Troponin I (0.02-0.05) ng/mL B-Natriuretic Peptide 9 (0-100) pg/mL Total Protein (6.4-8.2) g/dL Albumin (3.4-5.0) g/dL 05/28/18 Range/Units 16:20 WBC (4.0-11.0) th/mm3 RBC (4.50-5.90) mil/mm3 Hgb (13.0-17.0) gm/dL Hct (39.0-51.0) % MCV (80.0-100.0) fL MCH (27.0-34.0) pg MCHC (32.0-36.0) % RDW (11.6-17.2) % Plt Count (150-450) th/mm3 MPV (7.0-11.0) fL Neut % (Auto) (16.0-70.0) % Lymph % (Auto) (9.0-44.0) % Dent % (Auto) (0.0-8.0) % Eos % (Auto) (0.0-4.0) % Baso % (Auto) (0.0-2.0) % Neut # (Auto) (1.8-7.7) th/mm3 Lymph # (Auto) (1.0-4.8) th/mm3 Dent # (Auto) (0.0-0.9) th/mm3 Eos # (Auto) (0.0-0.4) th/mm3 Baso # (Auto) (0.0-0.2) th/mm3 WBC Differential Differential Comment PT (9.8-11.6) sec INR Ratio APTT (24.3-30.1) sec Sodium 129 L (136-145) meq/L Potassium 3.8 (3.5-5.1) meq/L Chloride 92 L (98-107) meq/L Carbon Dioxide 25.3 (21.0-32.0) meq/L Anion Gap 12 (5-15) meq/L BUN 14 (7-18) mg/dL Creatinine 0.75 (0.60-1.30) mg/dL Estimated GFR Greater than 89 (>89) mL/min Random Glucose 258 H (74-106) mg/dL Calcium 9.0 (8.5-10.1) mg/dL Magnesium 1.8 (1.5-2.5) mg/dL Total Bilirubin 0.6 (0.2-1.0) mg/dL AST 14 L (15-37) U/L ALT 25 (12-78) U/L Alkaline Phosphatase 32 L (45-117) U/L Troponin I Less than 0.02 L (0.02-0.05) ng/mL B-Natriuretic Peptide (0-100) pg/mL Total Protein 6.7 (6.4-8.2) g/dL Albumin 3.9 (3.4-5.0) g/dL Imaging Data Attestation: I personally reviewed and interpreted this imaging study as follows : Radiologist's impression: Chest X-Ray 05/28/18 16:18 CONCLUSION: No acute intrathoracic disease. Stable examination. Head CT 05/28/18 16:18 CONCLUSION: 1. No focal or acute intracranial hemorrhage. 2. Stable bilateral cortical atrophy with no significant change compared to the prior exam. . Discharge Plan Discharge Disposition Patient Disposition: 30 Still Patient Discharge Condition Condition: Fair Discharge Details Diagnosis: Brain TIA Physicians Team ED Provider: Sariah Valdes Primary Care Provider: Jane Trevizo Rxs /Orders / Referrals /Forms Prescriptions: No Action atorvastatin 10 mg Tablet 10 mg PO HS RF: 0 thiamine HCl (vitamin B1) 100 mg Tablet 100 mg PO DAILY RF: 0 tamsulosin 0.4 mg Capsule,Extended Release 24hr 0.8 mg PO HS RF: 0 docusate sodium 100 mg Capsule 100 mg PO HS RF: 0 ergocalciferol (vitamin D2) 50,000 unit Capsule 50,000 unit PO QWEEK RF: 0 levetiracetam [Keppra] 500 mg Tablet 500 mg PO BID Qty: 60 RF: 0 metformin 500 mg Tablet 500 mg PO BID RF: 0 clopidogrel [Plavix] 75 mg Tablet 75 mg PO DAILY RF: 0 aspirin 81 mg Tablet,Delayed Release (Dr/Ec) 81 mg PO DAILY RF: 0 insulin aspart U-100 [Novolog U-100 Insulin aspart] 100 unit/mL Solution 1 sliding scale dose SUB-Q UD RF: 0 irbesartan 150 mg Tablet 150 mg PO BID RF: 0 polyethylene glycol 3350 [Purelax] 17 gram/dose Powder 17 gm PO DAILY PRN (Reason: Constipation) RF: 0 geriatric [id number] [Spectravite Senior] Tablet 1 tab PO DAILY RF: 0 psyllium husk [Metamucil] 3.4 gram/5.4 gram Powder 2 tbsp PO DAILY RF: 0 insulin detemir U-100 [Levemir U-100 Insulin] 100 unit/mL solution 14 unit Sub-Q HS RF: 0 insulin detemir U-100 [Levemir U-100 Insulin] 100 unit/mL solution 20 unit Sub-Q QAM RF: 0 Status ED Status: With Doctor
[2018-05-28] MEDS ORDERED: Dextrose 50% in Water 50 ML Vial IV.PUSH PRN ×2 (18:29→18:37)
[2018-05-28] MEDS ORDERED: Polyethylene Glycol 3350 255 GM Bottle PO PRN (18:35)
[2018-05-28] MEDS ORDERED: Insulin Detemir Inj 1,000 UNIT/10 ML Vial SQ SCH (18:45)
[2018-05-28] MEDS: levETIRAcetam 500 MG Tablet PO SCH (22:25)
[2018-05-28] MEDS: Docusate Sodium 100 MG Capsule PO SCH (22:26)
[2018-05-28] MEDS: Insulin NovoLOG Aspart Correctional Sugar Inj SQ SCH (22:27)
[2018-05-28 23:02] LABS: Creatine Kinase 51 U/L (39-308)
--- NOTE | 2018-05-28 23:14 | P.HPIM ---
History of Present Illness Service: [facility] Hospital[facility] . Primary Care Physician: Jane Trevizo MD Chief Complaint: "I passed out" History of Present Illness: Mr. Manley is a 77-year-old male with history of hypertension, type 2 diabetes mellitus, TIA, and CVA who presented to the emergency room on 05/28/18 after he had a syncopal episode. He has had 5 similar episodes in the last 3 months and he has been following with Dr. Mahoney, neurology - patient started on Keppra for focal seizures, and Dr. Salgado, cardiology - patient was started on Plavix. He was admitted in March for similar symptoms and workup was inconclusive of etiology. The patient is admitted to the hospitalist service for observation and further evaluation. The patient is seen in his hospital room. No focal deficits noted; he has no complaints. He is notable confused and oriented only to self, year, and the fact that he is in a hospital. Review of Systems unobtainable due to mental condition (patient tells me he cannot remember upon ROS) [facility] - History History Provided By: Patient, Family Member - Medical History Medical History: Medical History (Last Reviewed 05/29/18 @ 01:39 by YOHAN Cook) Alcohol abuse CVA (cerebral vascular accident) Diabetes Hypertension TIA (transient ischemic attack) - Surgical History Surgical History: Surgical History (Last Reviewed 05/29/18 @ 01:39 by YOHAN Cook) History of right hip replacement - Family History Family History: Family History (Last Reviewed 05/29/18 @ 01:40 by YOHAN Cook) Grandparent No problems noted. Father Family history of diabetes mellitus - Tobacco History Second Hand Smoke Exposure: No Tobacco Use In Past 30 Days: No Smoking Status: Never smoker - Alcohol History How Often Do You Have a Drink Containing Alcohol: Never - Substance Use History Substance History: Past History - Travel History Recent Travel in the [place] Within the Last 8 Weeks: No Recent Travel Out of the Country Within the Last 8 Weeks: No - Immunization History Tetanus Immunization: <5 Years Medications and Allergies Active Medications: Active Medications Aspirin (Aspirin Chew) 162 mg PO DAILY JASMINA Atorvastatin Calcium (Lipitor) 10 mg PO HS JASMINA Last Admin: 05/28/18 22:25 Dose: 10 mg Clopidogrel Bisulfate (Plavix) 75 mg PO DAILY JASMINA Dextrose (D50w Vial) 50 ml IV.PUSH UNSCH PRN PRN Reason: PER HYPOGLYCEMIA PROTOCOL Docusate Sodium (Colace) 100 mg PO HS [facility] Last Admin: 05/28/18 22:26 Dose: 100 mg Ergocalciferol (Vitamind2) 50,000 unit PO Q7D [facility] Glucagon (Glucagon Inj) 1 mg OTHER PRN PRN PRN Reason: for Hypoglycemia Protocol Insulin Aspart (Novolog Insulin Correctional Sugar Inj) 0 unit SQ ACHS AND 3AM JASMINA; Protocol Last Admin: 05/28/18 22:27 Dose: Not Given Insulin Detemir (Levemir Inj) 20 unit SQ DAILY [facility] Last Admin: 05/28/18 18:52 Dose: Not Given Levetiracetam (Keppra) 500 mg PO BID [facility] Last Admin: 05/28/18 22:25 Dose: 500 mg Losartan Potassium (Cozaar) 100 mg PO DAILY [facility] Last Admin: 05/28/18 22:27 Dose: 100 mg Pt:Spectravite (Senior) 0 each PO DAILY [facility] Polyethylene Glycol (Miralax) 17 gm PO DAILY PRN PRN Reason: Constipation Psyllium Hydrophilic Mucilloid (Metamucil Fiber Sf Pkt) 1 pack PO DAILY [facility] Sodium Chloride (Ns Flush) 2 ml IV.FLUSH PRN PRN PRN Reason: FLUSH AFTER USING IV ACCESS Tamsulosin HCl (Flomax) 0.8 mg PO [facility] Last Admin: 05/28/18 22:25 Dose: 0.8 mg Thiamine HCl (Vitamin B1) 100 mg PO DAILY [facility] Allergies Allergy/AdvReac Type Severity Reaction Status Date / Time No Known Allergies Allergy Mild Uncoded 08/22/08 09:58 Home Medications Medication Instructions Recorded Confirmed Type atorvastatin 10 mg PO 03/31/18 05/28/18 History docusate sodium 100 mg PO 03/31/18 05/28/18 History ergocalciferol (vitamin D2) 50,000 unit PO QWEEK 03/31/18 05/28/18 History tamsulosin 0.8 mg PO HS 03/31/18 05/28/18 History thiamine HCl (vitamin B1) 100 mg PO DAILY 03/31/18 05/28/18 History aspirin 81 mg PO DAILY 05/28/18 05/28/18 History clopidogrel [Plavix] 75 mg PO DAILY 05/28/18 05/28/18 History geriatric [id number] 1 tab PO DAILY 05/28/18 05/28/18 History [Spectravite Senior] insulin aspart U-100 [Novolog 1 sliding scale dose SUB-Q UD 05/28/18 05/28/18 History U-100 Insulin aspart] insulin detemir U-100 [Levemir 4 unit SUB-Q HS 05/28/18 05/29/18 History U-100 Insulin] insulin detemir U-100 [Levemir 24 unit SUB-Q QAM 05/28/18 05/29/18 History U-100 Insulin] irbesartan 150 mg PO BID 05/28/18 05/28/18 History metformin 500 mg PO BID 05/28/18 05/28/18 History polyethylene glycol 3350 [Purelax] 17 gm PO DAILY PRN 05/28/18 05/28/18 History psyllium husk [Metamucil] 2 tbsp PO DAILY 05/28/18 05/28/18 History Exam Vital signs: Vital Signs 05/28/18 16:12 05/28/18 16:48 05/28/18 17:34 Temperature 97.9 F Pulse Rate 70 71 Respiratory Rate 17 18 Blood Pressure 151/76 H 137/81 Pulse Oximetry 94 L 95 96 Intake & Output 05/28/18 05/28/18 05/29/18 06:59 18:59 06:59 Weight 77.111 kg Narrative: GENERAL: This is a an elderly, confused male patient, in no apparent distress. SKIN: No rashes. Cool and dry. HEAD: Atraumatic. Normocephalic. EYES: No scleral icterus. No injection or drainage. ENT: Nose without bleeding, purulent drainage. NECK: Trachea midline. No JVD. CARDIOVASCULAR: Regular rate and rhythm without murmurs, gallops, or rubs. peripheral pulses intact. RESPIRATORY: Clear to auscultation. Breath sounds equal bilaterally. No wheezes , rales, or rhonchi. GASTROINTESTINAL: Abdomen soft, non-tender, nondistended. No guarding. MUSCULOSKELETAL: Extremities without clubbing, cyanosis, or edema. No calf tenderness. NEUROLOGICAL: Awake and alert but oriented only to self and year. Motor and sensory grossly within normal limits. Normal speech. . Results - Labs CBC & Chem 7: 05/28/18 16:00 05/28/18 16:20 Labs: Short CBC 05/28/18 Range/Units 16:00 WBC 4.5 (4.0-11.0) th/mm3 Hgb 14.3 (13.0-17.0) gm/dL Hct 41.7 (39.0-51.0) % Plt Count 228 (150-450) th/mm3 BMP 05/28/18 16:20 Sodium 129 L Potassium 3.8 Chloride 92 L Carbon Dioxide 25.3 BUN 14 Creatinine 0.75 Calcium 9.0 Cardiac Enzymes 05/28/18 05/28/18 Range/Units 16:20 21:33 Total Creatine Kinase 51 (39-308) U/L Troponin I Less than 0.02 L Less than 0.02 L (0.02-0.05) ng/mL Liver Function 05/28/18 Range/Units 16:20 Total Bilirubin 0.6 (0.2-1.0) mg/dL AST 14 L (15-37) U/L ALT 25 (12-78) U/L Alkaline Phosphatase 32 L (45-117) U/L Albumin 3.9 (3.4-5.0) g/dL - Imaging Impressions Chest X-Ray 05/28/18 16:18 CONCLUSION: No acute intrathoracic disease. Stable examination. Head CT 05/28/18 16:18 CONCLUSION: 1. No focal or acute intracranial hemorrhage. 2. Stable bilateral cortical atrophy with no significant change compared to the prior exam. . Caprini VTE Risk Assessment Caprini VTE Risk Assessment: Moderate/High Risk (score >= 2) Caprini Risk Assessment Model: Point Value = 1 Point Value = 2 Point Value = 3 Point Value = 5 Age 41-60 Minor surgery BMI > 25 kg/m2 Swollen legs Varicose veins or History of unexplained or recurrent spontaneous Oral contraceptives or hormone replacement Sepsis (< 1 month) Serious lung disease, including pneumonia (< 1 month) Abnormal pulmonary function Acute myocardial infarction Congestive heart failure (< 1 month) History of inflammatory bowel disease Medical patient at bed rest Age 61-74 Arthroscopic surgery Major open surgery (> 45 min) Laparoscopic surgery (> 45 min) Malignancy Confined to bed (> 72 hours) Immobilizing plaster cast Central venous access Age >= 75 History of VTE Family history of VTE Factor V Leiden Prothrombin [id number] Lupus anticoagulant Anticardiolipin antibodies Elevated serum homocysteine Heparin-induced thrombocytopenia Other congenital or acquired thrombophilia Stroke (< 1 month) Elective arthroplasty Hip, pelvis, or leg fracture Acute spinal cord injury (< 1 month) Prophylaxis Regimen: Total Risk Factor Score Risk Level Prophylaxis Regimen 0-1 Low Early ambulation 2 Moderate Order ONE of the following: *Sequential Compression Device (SCD) *Heparin 5000 units SQ BID 3-4 Higher Order ONE of the following medications: *Heparin 5000 units SQ TID *Enoxaparin/Lovenox 40 mg SQ daily (WT < 150 kg, CrCl > 30 mL/min) *Enoxaparin/Lovenox 30 mg SQ daily (WT < 150 kg, CrCl > 10-29 mL/min) *Enoxaparin/Lovenox 30 mg SQ BID (WT < 150 kg, CrCl > 30 mL/min) AND/OR *Sequential Compression Device (SCD) 5 or more Highest Order ONE of the following medications: *Heparin 5000 units SQ TID (Preferred with Epidurals) *Enoxaparin/Lovenox 40 mg SQ daily (WT < 150 kg, CrCl > 30 mL/min) *Enoxaparin/Lovenox 30 mg SQ daily (WT < 150 kg, CrCl > 10-29 mL/min) *Enoxaparin/Lovenox 30 mg SQ BID (WT < 150 kg, CrCl > 30 mL/min) AND *Sequential Compression Device (SCD) Assessment and Plan - Plan Mr. Manley is a 77-year-old male with history of hypertension, type 2 diabetes mellitus, TIA, and CVA who presented to the emergency room on 05/28/18 after he had a syncopal episode. He has had 5 similar episodes in the last 3 months and he has been following with Dr. Mahoney, neurology - patient started on Keppra for focal seizures, and Dr. Salgado, cardiology - patient was started on Plavix. He was admitted in March for similar symptoms and workup was inconclusive of etiology. The patient is admitted to the hospitalist service for observation and further evaluation. Syncope vs TIA vs focal seizures - carotid us 03/31/18 with no significant stenosis in either carotid - MR head without contrast 03/31/18 showed cerebral atrophy and chronic ischemic small vessel vasculopathy with multiple punctate areas of high susceptibility artifact suggestive of petechial hemorrhages that can be seen with hypertensive encephalopathy, trauma, or amyloid. - MRA 03/31/18 showed focal narrowing of left proximal cerebral artery likely artifact. Otherwise a normal study. - echo 04/02 showed EF of 65-70% moderate mitral annular calcification - EEG was normal in March - Head CT showed no acute changes in ED - CXR normal - will consult neurology - close monitoring of vital signs and neuro checks - continuous cardiac telemetry to monitor for arrhythmia - Continue Plavix and Keppra - Aspirin 162 mg p.o. daily Type 2 Diabetes Mellitus - Accu-Cheks before meals and at bedtime with low-dose NovoLog sliding scale coverage - PRN Hypoglycemia protocol - Monitor trends and blood glucose readings and adjust treatments as indicated DVT prophylaxis - SCDs Discussed Condition With: RN and Dr. Peña
[2018-05-29] MEDS ORDERED: Insulin Detemir Inj 1,000 UNIT/10 ML Vial SQ ONE (01:28)
[2018-05-29] MEDS: Insulin NovoLOG Aspart Correctional Sugar Inj SQ SCH ×5 (03:01→21:51)
[2018-05-29 05:47] LABS: Baso % (Auto) 0.8 % (0.0-2.0); Eos # (Auto) 0.1 th/mm3 (0.0-0.4); Eos % (Auto) 2.7 % (0.0-4.0); Hematocrit 41.8 % (39.0-51.0); Hemoglobin 14.6 gm/dL (13.0-17.0); Lymph # (Auto) 0.9 th/mm3 (1.0-4.8); Lymph % (Auto) 22.1 % (9.0-44.0); Mean Corpuscular Hemoglobin 32.9 pg (27.0-34.0); Mean Corpuscular Volume 94.1 fL (80.0-100.0); Mean Platelet Volume 8.1 fL (7.0-11.0); Mono # (Auto) 0.4 th/mm3 (0.0-0.9); Mono % (Auto) 10.2 % (0.0-8.0); Neut # (Auto) 2.7 th/mm3 (1.8-7.7); Neut % (Auto) 64.2 % (16.0-70.0); Platelet Count 217 th/mm3 (150-450); Red Blood Count 4.44 mil/mm3 (4.50-5.90); Red Cell Distribution Width 14.2 % (11.6-17.2); White Blood Count 4.3 th/mm3 (4.0-11.0)
[2018-05-29 06:41] LABS: Cholesterol 141 mg/dL (120-200); Triglycerides 60 mg/dL (42-150)
[2018-05-29 06:59] LABS: Chol/HDL Ratio 2.38 Ratio; HDL Cholesterol 59.2 mg/dL (40.0-60.0); LDL Cholesterol,Calculated 70 mg/dL (0-99)
[2018-05-29 07:08] LABS: Creatine Kinase 59 U/L (39-308)
[2018-05-29] MEDS: levETIRAcetam 500 MG Tablet PO SCH ×2 (08:28→21:50)
[2018-05-29] MEDS: Insulin Detemir Inj 1,000 UNIT/10 ML Vial SQ SCH (08:28)
[2018-05-29] MEDS ORDERED: [UNRECOGNIZED DRUG - OTHER] PO SCH (09:00)
[2018-05-29] MEDS ORDERED: [UNRECOGNIZED DRUG - OTHER] PO SCH (09:00)
--- NOTE | 2018-05-29 09:47 | P.PNIM ---
Subjective Interval history: fu; syncopal episode. in no acute distress. says that ' he's back to normal'. no dizziness or pain. family at the bedside. Physical Exam Vital signs: Vital Signs 05/28/18 16:12 05/28/18 16:48 05/28/18 17:34 Temperature 97.9 F Pulse Rate 70 71 Respiratory Rate 17 18 Blood Pressure 151/76 H 137/81 Pulse Oximetry 94 L 95 96 05/28/18 20:00 05/29/18 00:00 05/29/18 07:49 Temperature 97.5 F L 98 F 98 F Pulse Rate 75 76 68 Respiratory Rate 17 16 18 Blood Pressure 150/80 H 142/82 H 138/88 Pulse Oximetry 95 95 96 05/29/18 08:20 05/29/18 08:30 Temperature 97.8 F Pulse Rate 88 Respiratory Rate 18 Blood Pressure 179/88 H Pulse Oximetry 96 96 Intake & Output 05/28/18 05/29/18 05/29/18 18:59 06:59 18:59 Intake Total 1000 / 1000 Balance 1000 / 1000 Weight 77.111 kg 87.5 kg Intake: IV 1000 / 1000 Other: # Voids 2 - Constitutional no acute distress - Routine Respiratory Exam Present: CTA bilaterally - Routine Cardiovascular Exam Present: RRR - Routine Abdominal Exam Present: soft - Routine Extremities Exam Comments: no pedal edema. - Routine Neurological Exam Present: alert Results - Labs CBC & Chem 7: 05/29/18 05:23 05/28/18 16:20 Laboratory Results - last 24 hr 05/28/18 05/28/18 05/28/18 16:00 16:00 16:20 WBC 4.5 RBC 4.40 L Hgb 14.3 Hct 41.7 MCV 94.9 MCH 32.4 MCHC 34.1 RDW 14.2 Plt Count 228 MPV 8.1 Neut % (Auto) 46.6 Lymph % (Auto) 35.2 Arthur % (Auto) 10.3 H Eos % (Auto) 6.9 H Baso % (Auto) 1.0 Neut # (Auto) 2.1 Lymph # (Auto) 1.6 Arthur # (Auto) 0.5 Eos # (Auto) 0.3 Baso # (Auto) 0.0 WBC Differential . Differential Comment Auto diff final PT 11.1 INR 1.1 APTT 24.2 L Sodium Potassium Chloride Carbon Dioxide Anion Gap BUN Creatinine Estimated GFR POC Glucose Random Glucose Calcium Magnesium Total Bilirubin AST ALT Alkaline Phosphatase Total Creatine Kinase Troponin I B-Natriuretic Peptide 9 Total Protein Albumin Triglycerides Cholesterol LDL Cholesterol, Calc HDL Cholesterol Cholesterol/HDL Ratio 05/28/18 05/28/18 05/28/18 16:20 21:30 21:33 WBC RBC Hgb Hct MCV MCH MCHC RDW Plt Count MPV Neut % (Auto) Lymph % (Auto) Arthur % (Auto) Eos % (Auto) Baso % (Auto) Neut # (Auto) Lymph # (Auto) Arthur # (Auto) Eos # (Auto) Baso # (Auto) WBC Differential Differential Comment PT INR APTT Sodium 129 L Potassium 3.8 Chloride 92 L Carbon Dioxide 25.3 Anion Gap 12 BUN 14 Creatinine 0.75 Estimated GFR Greater than 89 POC Glucose 312 H Random Glucose 258 H Calcium 9.0 Magnesium 1.8 Total Bilirubin 0.6 AST 14 L ALT 25 Alkaline Phosphatase 32 L Total Creatine Kinase 51 Troponin I Less than 0.02 L Less than 0.02 L B-Natriuretic Peptide Total Protein 6.7 Albumin 3.9 Triglycerides Cholesterol LDL Cholesterol, Calc HDL Cholesterol Cholesterol/HDL Ratio 05/29/18 05/29/18 05/29/18 02:58 05:23 05:23 WBC 4.3 RBC 4.44 L Hgb 14.6 Hct 41.8 MCV 94.1 MCH 32.9 MCHC 35.0 RDW 14.2 Plt Count 217 MPV 8.1 Neut % (Auto) 64.2 Lymph % (Auto) 22.1 Arthur % (Auto) 10.2 H Eos % (Auto) 2.7 Baso % (Auto) 0.8 Neut # (Auto) 2.7 Lymph # (Auto) 0.9 L Arthur # (Auto) 0.4 Eos # (Auto) 0.1 Baso # (Auto) 0.0 WBC Differential . Differential Comment Auto diff final PT INR APTT Sodium Potassium Chloride Carbon Dioxide Anion Gap BUN Creatinine Estimated GFR POC Glucose 281 H Random Glucose Calcium Magnesium Total Bilirubin AST ALT Alkaline Phosphatase Total Creatine Kinase 59 Troponin I Less than 0.02 L B-Natriuretic Peptide Total Protein Albumin Triglycerides 60 Cholesterol 141 LDL Cholesterol, Calc 70 HDL Cholesterol 59.2 Cholesterol/HDL Ratio 2.38 05/29/18 07:29 WBC RBC Hgb Hct MCV MCH MCHC RDW Plt Count MPV Neut % (Auto) Lymph % (Auto) Arthur % (Auto) Eos % (Auto) Baso % (Auto) Neut # (Auto) Lymph # (Auto) Arthur # (Auto) Eos # (Auto) Baso # (Auto) WBC Differential Differential Comment PT INR APTT Sodium Potassium Chloride Carbon Dioxide Anion Gap BUN Creatinine Estimated GFR POC Glucose 318 H Random Glucose Calcium Magnesium Total Bilirubin AST ALT Alkaline Phosphatase Total Creatine Kinase Troponin I B-Natriuretic Peptide Total Protein Albumin Triglycerides Cholesterol LDL Cholesterol, Calc HDL Cholesterol Cholesterol/HDL Ratio - Imaging Impressions Chest X-Ray 05/28/18 16:18 CONCLUSION: No acute intrathoracic disease. Stable examination. Head CT 05/28/18 16:18 CONCLUSION: 1. No focal or acute intracranial hemorrhage. 2. Stable bilateral cortical atrophy with no significant change compared to the prior exam. . Assessment and Plan - Plan Syncope vs TIA vs focal seizures - carotid us 03/31/18 with no significant stenosis in either carotid - MR head without contrast 03/31/18 showed cerebral atrophy and chronic ischemic small vessel vasculopathy with multiple punctate areas of high susceptibility artifact suggestive of petechial hemorrhages that can be seen with hypertensive encephalopathy, trauma, or amyloid. - MRA 03/31/18 showed focal narrowing of left proximal cerebral artery likely artifact. Otherwise a normal study. - echo 04/02 showed EF of 65-70% moderate mitral annular calcification - EEG was normal in March - Head CT showed no acute changes in ED - CXR normal - awaiting neurology evaluation. - close monitoring of vital signs and neuro checks - continuous cardiac telemetry to monitor for arrhythmia - Continue Plavix and Keppra - Aspirin 162 mg p.o. daily Type 2 Diabetes Mellitus - Accu-Cheks before meals and at bedtime with low-dose NovoLog sliding scale coverage - PRN Hypoglycemia protocol - Monitor trends and blood glucose readings and adjust treatments as indicated DVT prophylaxis - SCDs Discharge Planning: awaiting neurology/ PT evaluation.
[2018-05-29] MEDS: Psyllium Husk SF 3.4 GM in 5.8 GM Packet PO SCH (11:02)
[2018-05-29] MEDS ORDERED: Dextrose 50% in Water 50 ML Vial IV.PUSH PRN (12:07)
--- NOTE | 2018-05-29 13:17 | ECG ---
Date Performed: 05/28/2018 Time Performed: 16:21:03 PTAGE: 77 years EKG: Sinus rhythm MARKED LEFT AXIS DEVIATION MODERATE INTRAVENTRICULAR CONDUCTION DELAY MINIMAL VOLTAGE CRITERIA FOR L VH, CONSIDER NORMAL VARIANT ABNORMAL ECG INTERPRETATION BASED ON A DEFAULT AGE OF 40 YEARS NO PREVIOUS TRACING DOCTOR: Tyler Hill Interpretating Date/Time 05/29/2018 13:12:59
--- NOTE | 2018-05-29 14:28 | P.CONNEU ---
History of Present Illness Service: neurology Primary Care Provider: Jane Trevizo MD Family Provider: Jane Trevizo MD Chief Complaint: "I passed out" History of Present Illness: 77-year-old male admitted for syncopal episode. He has been having these episodes over the past several weeks. He has had a couple while sitting on the toilet couple while involved physical therapy and others where he has not been doing any activity and sitting preps watching television. History obtained from the patient's spouse and son sitting at bedside. Each son helps take care of the father. Son describes episodes where he suddenly becomes confused as dysnomia some facial and hand automatisms. Based on this he was started on Keppra early March time. They feel that this is a reduce some of his spells. However does make a little sleepy. [facility] - History History Provided By: Patient, Family Member - Medical History Medical History: Medical History (Last Reviewed 05/29/18 @ 10:44 by Cherise Mike) Alcohol abuse CVA (cerebral vascular accident) Diabetes Hypertension TIA (transient ischemic attack) - Surgical History Surgical History: Surgical History (Last Reviewed 05/29/18 @ 10:44 by Cherise Mike) History of right hip replacement - Family History Family History: Family History (Last Reviewed 05/29/18 @ 01:40 by YOHAN Cook) Grandparent No problems noted. Father Family history of diabetes mellitus - Tobacco History Second Hand Smoke Exposure: No Tobacco Use In Past 30 Days: No Smoking Status: Never smoker - Alcohol History How Often Do You Have a Drink Containing Alcohol: Never - Substance Use History Substance History: Past History - Travel History Recent Travel in the [place] Within the Last 8 Weeks: No Recent Travel Out of the Country Within the Last 8 Weeks: No - Immunization History Tetanus Immunization: <5 Years Hx Influenza Vaccine This Season: Unable to Assess Medications and Allergies Active Medications: Active Medications Aspirin (Aspirin Chew) 162 mg PO DAILY [facility] Last Admin: 05/29/18 08:28 Dose: 162 mg Atorvastatin Calcium (Lipitor) 10 mg PO HS [facility] Last Admin: 05/28/18 22:25 Dose: 10 mg Clopidogrel Bisulfate (Plavix) 75 mg PO DAILY [facility] Last Admin: 05/29/18 08:28 Dose: 75 mg Dextrose (D50w Vial) 50 ml IV.PUSH UNSCH PRN PRN Reason: PER HYPOGLYCEMIA PROTOCOL Dextrose (D50w Vial) 50 ml IV.PUSH UNSCH PRN PRN Reason: PER HYPOGLYCEMIA PROTOCOL Docusate Sodium (Colace) 100 mg PO [facility] Last Admin: 05/28/18 22:26 Dose: 100 mg Enalaprilat (Vasotec Inj) 1.25 mg IV.PUSH Q8H PRN PRN Reason: SBP > 180 or DBP > 100 Last Admin: 05/29/18 12:47 Dose: 1.25 mg Ergocalciferol (Vitamind2) 50,000 unit PO Q7D [facility] Glucagon (Glucagon Inj) 1 mg OTHER PRN PRN PRN Reason: for Hypoglycemia Protocol Glucagon (Glucagon Inj) 1 mg OTHER PRN PRN PRN Reason: for Hypoglycemia Protocol Insulin Aspart (Novolog Insulin Correctional Sugar Inj) 0 unit SQ [facility]; Protocol Insulin Detemir (Levemir Inj) 4 unit SQ [facility] Insulin Detemir (Levemir Inj) 24 unit SQ DAILY [facility] Last Admin: 05/29/18 08:28 Dose: 24 unit Levetiracetam (Keppra) 500 mg PO BID [facility] Last Admin: 05/29/18 08:28 Dose: 500 mg Losartan Potassium (Cozaar) 100 mg PO DAILY [facility] Last Admin: 05/29/18 08:28 Dose: 100 mg Pt:Spectravite (Senior) 0 each PO DAILY [facility] Polyethylene Glycol (Miralax) 17 gm PO DAILY PRN PRN Reason: Constipation Psyllium Hydrophilic Mucilloid (Metamucil Fiber Sf Pkt) 1 pack PO DAILY [facility] Last Admin: 05/29/18 11:02 Dose: 1 pack Sodium Chloride (Ns Flush) 2 ml IV.FLUSH PRN PRN PRN Reason: FLUSH AFTER USING IV ACCESS Tamsulosin HCl (Flomax) 0.8 mg PO [facility] Last Admin: 05/28/18 22:25 Dose: 0.8 mg Thiamine HCl (Vitamin B1) 100 mg PO DAILY [facility] Last Admin: 05/29/18 08:28 Dose: 100 mg Allergies Allergy/AdvReac Type Severity Reaction Status Date / Time No Known Allergies Allergy Mild Uncoded 08/22/08 09:58 Home Medications Medication Instructions Recorded Confirmed Type atorvastatin 10 mg PO 03/31/18 05/28/18 History docusate sodium 100 mg PO 03/31/18 05/28/18 History ergocalciferol (vitamin D2) 50,000 unit PO QWEEK 03/31/18 05/28/18 History tamsulosin 0.8 mg PO HS 03/31/18 05/28/18 History thiamine HCl (vitamin B1) 100 mg PO DAILY 03/31/18 05/28/18 History aspirin 81 mg PO DAILY 05/28/18 05/28/18 History clopidogrel [Plavix] 75 mg PO DAILY 05/28/18 05/28/18 History geriatric [id number] 1 tab PO DAILY 05/28/18 05/28/18 History [Spectravite Senior] insulin aspart U-100 [Novolog 1 sliding scale dose SUB-Q UD 05/28/18 05/28/18 History U-100 Insulin aspart] insulin detemir U-100 [Levemir 4 unit SUB-Q HS 05/28/18 05/29/18 History U-100 Insulin] insulin detemir U-100 [Levemir 24 unit SUB-Q QAM 05/28/18 05/29/18 History U-100 Insulin] irbesartan 150 mg PO BID 05/28/18 05/28/18 History metformin 500 mg PO BID 05/28/18 05/28/18 History polyethylene glycol 3350 [Purelax] 17 gm PO DAILY PRN 05/28/18 05/28/18 History psyllium husk [Metamucil] 2 tbsp PO DAILY 05/28/18 05/28/18 History Exam Vital signs: Vital Signs 05/28/18 16:12 05/28/18 16:48 05/28/18 17:34 Temperature 97.9 F Pulse Rate 70 71 Respiratory Rate 17 18 Blood Pressure 151/76 H 137/81 Pulse Oximetry 94 L 95 96 05/28/18 20:00 05/29/18 00:00 05/29/18 07:49 Temperature 97.5 F L 98 F 98 F Pulse Rate 75 76 68 Respiratory Rate 17 16 18 Blood Pressure 150/80 H 142/82 H 138/88 Pulse Oximetry 95 95 96 05/29/18 08:20 05/29/18 08:30 05/29/18 09:00 Temperature 97.8 F Pulse Rate 88 89 Respiratory Rate 18 Blood Pressure 179/88 H Pulse Oximetry 96 96 05/29/18 11:47 05/29/18 12:00 05/29/18 13:59 Temperature 97.5 F L Pulse Rate 82 78 Respiratory Rate 18 Blood Pressure 182/89 H 144/72 H Pulse Oximetry 95 Intake & Output 05/28/18 05/29/18 05/29/18 18:59 06:59 18:59 Intake Total 1000 / 1000 Balance 1000 / 1000 Weight 77.111 kg 87.5 kg Intake: IV 1000 / 1000 Other: # Voids 2 Narrative: GENERAL: This is a an elderly, confused male patient, in no apparent distress. SKIN: No rashes. Cool and dry. HEAD: Atraumatic. Normocephalic. EYES: No scleral icterus. No injection or drainage. ENT: Nose without bleeding, purulent drainage. NECK: Trachea midline. No JVD. CARDIOVASCULAR: Regular rate and rhythm without murmurs, gallops, or rubs. peripheral pulses intact. RESPIRATORY: Clear to auscultation. Breath sounds equal bilaterally. GASTROINTESTINAL: Abdomen soft, non-tender, nondistended. MUSCULOSKELETAL: Extremities without clubbing, cyanosis, or edema. No calf tenderness. NEUROLOGICAL: Awake and alert but oriented only to self and year. Articulate, follows, looks well. Sitting up eating lunch. No facial asymmetry visual fish grossly full able raise all 4 extremity gravity. 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 Differential Comment Auto diff final PT 11.1 INR 1.1 APTT 24.2 L Sodium Potassium Chloride Carbon Dioxide Anion Gap BUN Creatinine Estimated GFR POC Glucose Random Glucose Calcium Magnesium Total Bilirubin AST ALT Alkaline Phosphatase Total Creatine Kinase Troponin I B-Natriuretic Peptide 9 Total Protein Albumin Triglycerides Cholesterol LDL Cholesterol, Calc HDL Cholesterol Cholesterol/HDL Ratio 05/28/18 05/28/18 05/28/18 16:20 21:30 21:33 WBC RBC Hgb Hct MCV MCH MCHC RDW Plt Count MPV Neut % (Auto) Lymph % (Auto) Morris % (Auto) Eos % (Auto) Baso % (Auto) Neut # (Auto) Lymph # (Auto) Morris # (Auto) Eos # (Auto) Baso # (Auto) WBC Differential Differential Comment PT INR APTT Sodium 129 L Potassium 3.8 Chloride 92 L Carbon Dioxide 25.3 Anion Gap 12 BUN 14 Creatinine 0.75 Estimated GFR Greater than 89 POC Glucose 312 H Random Glucose 258 H Calcium 9.0 Magnesium 1.8 Total Bilirubin 0.6 AST 14 L ALT 25 Alkaline Phosphatase 32 L Total Creatine Kinase 51 Troponin I Less than 0.02 L Less than 0.02 L B-Natriuretic Peptide Total Protein 6.7 Albumin 3.9 Triglycerides Cholesterol LDL Cholesterol, Calc HDL Cholesterol Cholesterol/HDL Ratio 05/29/18 05/29/18 05/29/18 02:58 05:23 05:23 WBC 4.3 RBC 4.44 L Hgb 14.6 Hct 41.8 MCV 94.1 MCH 32.9 MCHC 35.0 RDW 14.2 Plt Count 217 MPV 8.1 Neut % (Auto) 64.2 Lymph % (Auto) 22.1 Morris % (Auto) 10.2 H Eos % (Auto) 2.7 Baso % (Auto) 0.8 Neut # (Auto) 2.7 Lymph # (Auto) 0.9 L Morris # (Auto) 0.4 Eos # (Auto) 0.1 Baso # (Auto) 0.0 WBC Differential . Differential Comment Auto diff final PT INR APTT Sodium Potassium Chloride Carbon Dioxide Anion Gap BUN Creatinine Estimated GFR POC Glucose 281 H Random Glucose Calcium Magnesium Total Bilirubin AST ALT Alkaline Phosphatase Total Creatine Kinase 59 Troponin I Less than 0.02 L B-Natriuretic Peptide Total Protein Albumin Triglycerides 60 Cholesterol 141 LDL Cholesterol, Calc 70 HDL Cholesterol 59.2 Cholesterol/HDL Ratio 2.38 05/29/18 05/29/18 07:29 11:18 WBC RBC Hgb Hct MCV MCH MCHC RDW Plt Count MPV Neut % (Auto) Lymph % (Auto) Morris % (Auto) Eos % (Auto) Baso % (Auto) Neut # (Auto) Lymph # (Auto) Morris # (Auto) Eos # (Auto) Baso # (Auto) WBC Differential Differential Comment PT INR APTT Sodium Potassium Chloride Carbon Dioxide Anion Gap BUN Creatinine Estimated GFR POC Glucose 318 H 334 H Random Glucose Calcium Magnesium Total Bilirubin AST ALT Alkaline Phosphatase Total Creatine Kinase Troponin I B-Natriuretic Peptide Total Protein Albumin Triglycerides Cholesterol LDL Cholesterol, Calc HDL Cholesterol Cholesterol/HDL Ratio - Imaging Impressions Chest X-Ray 05/28/18 16:18 CONCLUSION: No acute intrathoracic disease. Stable examination. Head CT 05/28/18 16:18 CONCLUSION: 1. No focal or acute intracranial hemorrhage. 2. Stable bilateral cortical atrophy with no significant change compared to the prior exam. . Review/Management - Diagnosis (1) Altered mental status Code(s): R41.82 - Altered mental status, unspecified Status: Acute Current Visit: No (2) Syncopal episodes Code(s): R55 - Syncope and collapse Status: Acute Current Visit: No (3) Hypertension Code(s): I10 - Essential (primary) hypertension Status: Acute Current Visit : No (4) Diabetes mellitus Code(s): E11.9 - Type 2 diabetes mellitus without complications Status: Acute Current Visit: No - Review/Management Plan: Recurrent syncopal episodes. Suspicious for complex partial seizures. He may also be having some superimposed vasovagal episodes. Noted be hyperglycemic with mild hyponatremia Recommendations EEG We will add Lamictal as higher dose of Keppra made him sleepy Orthostatics Telemetry Cardiology evaluation when feasible in versus outpatient. They are somewhat anxious to leave Discharge planning in a.m. if he stable Discussed with patient, spouse and son (1) Altered mental status Qualifiers: Altered mental status type: transient alteration of awareness Qualified Code( s): R40.4 - Transient alteration of awareness (2) Syncopal episodes Qualifiers: Syncope type: unspecified Qualified Code(s): R55 - Syncope and collapse
--- NOTE | 2018-05-29 14:30 | P.DCO ---
- Physical Therapy Order: Evaluate and treat - Home Health Nursing Order: Medical education, Signs/symptoms of disease process, Medication education-adverse effect, Nursing assessment with vital signs - Certification I have seen patient Scar Manley on 05/29/18. My clinical findings support the need for the requested home health care services because: Limited mobility due to disease progression I certify that my clinical findings support that this patient is homebound because: Unsteady gait/balance
[2018-05-29 15:49] LABS: Hemoglobin A1c 8.7 % (4.3-6.0)
[2018-05-29] MEDS: lamoTRIgine 25 MG TABLET PO SCH ×2 (16:28→21:51)
[2018-05-29] MEDS ORDERED: Insulin Detemir Inj 1,000 UNIT/10 ML Vial SQ SCH (21:00)
[2018-05-29] MEDS: Docusate Sodium 100 MG Capsule PO SCH (21:50)
--- NOTE | 2018-05-30 08:43 | P.PNIM ---
Subjective Interval history: in no acute distress. no dizziness, seizure, pain. hoping that he would go home today. d/w the son. Physical Exam Vital signs: Vital Signs 05/29/18 09:00 05/29/18 11:47 05/29/18 12:00 Temperature 97.5 F L Pulse Rate 89 82 78 Respiratory Rate 18 Blood Pressure 182/89 H Pulse Oximetry 95 05/29/18 13:59 05/29/18 16:00 05/29/18 20:00 Temperature 98.3 F 99.0 F Pulse Rate 91 H 89 Respiratory Rate 14 18 Blood Pressure 144/72 H 161/84 H 152/88 H Pulse Oximetry 93 L 98 05/29/18 21:11 05/30/18 00:00 05/30/18 04:00 Temperature 97.9 F 97.7 F Pulse Rate 79 70 76 Respiratory Rate 18 18 Blood Pressure 147/87 H 150/78 H 141/74 H Pulse Oximetry 95 97 Intake & Output 05/29/18 05/30/18 05/30/18 18:59 06:59 18:59 Intake Total 1000 / 1000 Balance 1000 / 1000 Weight 87.4 kg Intake: IV 1000 / 1000 Other: # Voids 3 3 - Constitutional no acute distress - Routine Respiratory Exam Present: CTA bilaterally - Routine Cardiovascular Exam Present: RRR - Routine Abdominal Exam Present: soft - Routine Extremities Exam Comments: no pedal edema. - Routine Neurological Exam Present: alert, oriented X3 Results - Labs CBC & Chem 7: 05/29/18 05:23 05/30/18 09:10 Laboratory Results - last 24 hr 05/29/18 05/29/18 05/29/18 05:23 11:18 16:31 POC Glucose 334 H 376 H Hemoglobin A1c 8.7 H 05/29/18 05/30/18 20:56 01:27 POC Glucose 255 H 227 H Hemoglobin A1c - Procedures none. Assessment and Plan - Plan Syncope vs TIA vs focal seizures - carotid us 03/31/18 with no significant stenosis in either carotid - MR head without contrast 03/31/18 showed cerebral atrophy and chronic ischemic small vessel vasculopathy with multiple punctate areas of high susceptibility artifact suggestive of petechial hemorrhages that can be seen with hypertensive encephalopathy, trauma, or amyloid. - MRA 03/31/18 showed focal narrowing of left proximal cerebral artery likely artifact. Otherwise a normal study. - echo 04/02 showed EF of 65-70% moderate mitral annular calcification - EEG was normal in March; repeated EEG pending. - Head CT showed no acute changes in ED - CXR normal - neurology consult appreciated; Lamictal was added. - continuous cardiac telemetry to monitor for arrhythmia - Continue Plavix and Keppra - Aspirin 162 mg p.o. daily Type 2 Diabetes Mellitus - Accu-Cheks before meals and at bedtime with low-dose NovoLog sliding scale coverage - PRN Hypoglycemia protocol - Monitor trends and blood glucose readings and adjust treatments as indicated Hyponatremia- chronic per my d/w the patient- f/u as outpatient. DVT prophylaxis - SCDs Discharge Planning: dc home with HHC today- pending EEG and BMP. see med list. f/u; pcp, neurology and cardiology. d/w the patient and his son.
[2018-05-30] MEDS: Insulin Detemir Inj 1,000 UNIT/10 ML Vial SQ SCH (09:23)
[2018-05-30] MEDS: Insulin NovoLOG Aspart Correctional Sugar Inj SQ SCH ×2 (09:23→13:38)
--- NOTE | 2018-05-30 09:25 | P.PNNEU ---
Subjective Medication List: Denies any headache vision loss dyspnea. Had some pain from Charcot joint his right foot son at bedside Active Medications: Active Medications Aspirin (Aspirin Chew) 162 mg PO DAILY [facility] Last Admin: 05/29/18 08:28 Dose: 162 mg Atorvastatin Calcium (Lipitor) 10 mg PO HS [facility] Last Admin: 05/29/18 21:51 Dose: 10 mg Clopidogrel Bisulfate (Plavix) 75 mg PO DAILY [facility] Last Admin: 05/29/18 08:28 Dose: 75 mg Dextrose (D50w Vial) 50 ml IV.PUSH UNSCH PRN PRN Reason: PER HYPOGLYCEMIA PROTOCOL Dextrose (D50w Vial) 50 ml IV.PUSH UNSCH PRN PRN Reason: PER HYPOGLYCEMIA PROTOCOL Docusate Sodium (Colace) 100 mg PO [facility] Last Admin: 05/29/18 21:50 Dose: 100 mg Enalaprilat (Vasotec Inj) 1.25 mg IV.PUSH Q8H PRN PRN Reason: SBP > 180 or DBP > 100 Last Admin: 05/29/18 12:47 Dose: 1.25 mg Ergocalciferol (Vitamind2) 50,000 unit PO Q7D [facility] Glucagon (Glucagon Inj) 1 mg OTHER PRN PRN PRN Reason: for Hypoglycemia Protocol Glucagon (Glucagon Inj) 1 mg OTHER PRN PRN PRN Reason: for Hypoglycemia Protocol Insulin Aspart (Novolog Insulin Correctional Sugar Inj) 0 unit SQ [facility]; Protocol Last Admin: 05/29/18 21:51 Dose: 3 unit Insulin Detemir (Levemir Inj) 4 unit SQ [facility] Last Admin: 05/29/18 21:51 Dose: 4 unit Insulin Detemir (Levemir Inj) 24 unit SQ DAILY [facility] Last Admin: 05/29/18 08:28 Dose: 24 unit Lamotrigine (Lamictal) 25 mg PO BID [facility] Last Admin: 05/29/18 21:51 Dose: 25 mg Levetiracetam (Keppra) 500 mg PO BID [facility] Last Admin: 05/29/18 21:50 Dose: 500 mg Losartan Potassium (Cozaar) 100 mg PO DAILY [facility] Last Admin: 05/29/18 08:28 Dose: 100 mg Pt:Spectravite (Senior) 0 each PO DAILY [facility] Polyethylene Glycol (Miralax) 17 gm PO DAILY PRN PRN Reason: Constipation Psyllium Hydrophilic Mucilloid (Metamucil Fiber Sf Pkt) 1 pack PO DAILY [facility] Last Admin: 05/29/18 11:02 Dose: 1 pack Sodium Chloride (Ns Flush) 2 ml IV.FLUSH PRN PRN PRN Reason: FLUSH AFTER USING IV ACCESS Tamsulosin HCl (Flomax) 0.8 mg PO HS [facility] Last Admin: 05/29/18 21:50 Dose: 0.8 mg Thiamine HCl (Vitamin B1) 100 mg PO DAILY [facility] Last Admin: 05/29/18 08:28 Dose: 100 mg Allergies/Adverse Reactions: Allergies Allergy/AdvReac Type Severity Reaction Status Date / Time No Known Allergies Allergy Mild Uncoded 08/22/08 09:58 Review of Systems All other systems reviewed negative except as stated in HPI Physical Exam Vital signs: Vital Signs 05/29/18 11:47 05/29/18 12:00 05/29/18 13:59 Temperature 97.5 F L Pulse Rate 82 78 Respiratory Rate 18 Blood Pressure 182/89 H 144/72 H Pulse Oximetry 95 05/29/18 16:00 05/29/18 20:00 05/29/18 21:11 Temperature 98.3 F 99.0 F Pulse Rate 91 H 89 79 Respiratory Rate 14 18 Blood Pressure 161/84 H 152/88 H 147/87 H Pulse Oximetry 93 L 98 05/30/18 00:00 05/30/18 04:00 Temperature 97.9 F 97.7 F Pulse Rate 70 76 Respiratory Rate 18 18 Blood Pressure 150/78 H 141/74 H Pulse Oximetry 95 97 Intake & Output 05/29/18 05/30/18 05/30/18 18:59 06:59 18:59 Intake Total 1000 / 1000 Balance 1000 / 1000 Weight 87.4 kg Intake: IV 1000 / 1000 Other: # Voids 3 3 Narrative: GENERAL: This is a an elderly, confused male patient, in no apparent distress. SKIN: No rashes. Cool and dry. HEAD: Atraumatic. Normocephalic. EYES: No scleral icterus. No injection or drainage. ENT: Nose without bleeding, NECK: Trachea midline. No JVD. CARDIOVASCULAR: Regular rate and rhythm RESPIRATORY: Clear to auscultation. Breath sounds equal bilaterally. GASTROINTESTINAL: Abdomen soft, non-tender, nondistended. MUSCULOSKELETAL: Extremities without clubbing, cyanosis, or edema. No calf tenderness. NEUROLOGICAL: Awake and alert but oriented to self and place, calm pleasant appropriate alert, articulate, follows no facial asymmetry visual fish grossly full able raise all 4 extremity gravity. 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, gait not assessed secondary to fall risk - Constitutional no acute distress - Routine HEENT Exam Head: Present: normocephalic Objective Laboratory Results - last 24 hr 05/29/18 05/29/18 05/29/18 05:23 11:18 16:31 POC Glucose 334 H 376 H Hemoglobin A1c 8.7 H 05/29/18 05/30/18 20:56 01:27 POC Glucose 255 H 227 H Hemoglobin A1c Review/Management - Diagnosis (1) Altered mental status Code(s): R41.82 - Altered mental status, unspecified Status: Acute Current Visit: No (2) Syncopal episodes Code(s): R55 - Syncope and collapse Status: Acute Current Visit: No (3) Hypertension Code(s): I10 - Essential (primary) hypertension Status: Acute Current Visit : No (4) Diabetes mellitus Code(s): E11.9 - Type 2 diabetes mellitus without complications Status: Acute Current Visit: No - Review/Management Plan: Recurrent syncopal episodes. Suspicious for complex partial seizures. He may also be having some superimposed vasovagal episodes. Noted be hyperglycemic with mild hyponatremia Recommendations EEG; pending Continue Lamictal Keppra. Keppra may be able to be discontinued once Lamictal dose is increased over the next several weeks Cardiology evaluation when feasible in versus outpatient. They are somewhat anxious to leave Discharge planning today follow-up in the office in 2-3 weeks Discussed with patient, and son (1) Altered mental status Qualifiers: Altered mental status type: transient alteration of awareness Qualified Code( s): R40.4 - Transient alteration of awareness (2) Syncopal episodes Qualifiers: Syncope type: unspecified Qualified Code(s): R55 - Syncope and collapse
[2018-05-30] MEDS: lamoTRIgine 25 MG TABLET PO SCH (10:28)
[2018-05-30] MEDS: levETIRAcetam 500 MG Tablet PO SCH (10:28)
[2018-05-30] MEDS: Psyllium Husk SF 3.4 GM in 5.8 GM Packet PO SCH (10:29)
[2018-05-30 10:34] LABS: Anion Gap 10 meq/L (5-15); Blood Urea Nitrogen 7 mg/dL (7-18); Calcium 8.8 mg/dL (8.5-10.1); Carbon Dioxide 28.5 meq/L (21.0-32.0); Chloride 90 meq/L (98-107); Glomerular Filtration Rate Greater Than 89 mL/min (>89); Glucose,Random 174 mg/dL (74-106); Potassium 3.8 meq/L (3.5-5.1); Sodium 128 meq/L (136-145)
--- NOTE | 2018-05-30 15:17 | MG ---
cc: Estelita Soni MD AGE: [id number] years old. EEG NUMBER: [id number] REFERRING PHYSICIAN: Dr. Vides. In room 1515; awake, drowsy, asleep with photic stimulation. EEG 03/31/[address] shows bilateral cortical atrophy. No change to prior exam. Admitted with syncope confusion, possible facial, hand automatisms, history of alcohol abuse, diabetic, TIA, left-sided weakness, dementia. MEDICATIONS: 1. Aspirin. 2. Lipitor. 3. Plavix. 4. Lamictal. 5. Keppra DESCRIPTION OF RECORD: The patient exhibits some mild slowing predominately of 5.5- 6 Hz background, symmetrical. EKG looks somewhat artifactual at times, cannot be interpreted. Hyperventilation is not done in EEG recording. Note that the patient is asleep, there is some delta waves. Photic stimulation, minimal driving response. A lot of artifact in the frontal eye fish, otherwise no epileptic activity. IMPRESSION: Mild slowing of background, may be due to the patient's known history of dementia versus medicine effect versus just a mild encephalopathy. No epileptiform features otherwise. MD GEOVANY Michele/irma/deana , 02:14 PM , 02:21 PM
== END 2018-05-30 16:17 | disposition home health service (06) ==
LOC: NEPE 16:05 → NEDA 16:05 → N05 19:05
PROVIDERS: ADMIT Internal Medicine; ATTEND Internal Medicine